=== PATIENT | female | born 1935 | race Caucasian/White ===

== ENCOUNTER 2017-07-31 17:27 | Observation (INO) | payer BC, MEDICARE ==
[2017-07-31] MEDS ORDERED: Ondansetron INJ* 2 MG/ML VIAL IV ONE (18:04)
--- NOTE | 2017-07-31 18:28 | RAD ---
INDICATION: Syncope COMPARISON: None TECHNIQUE: PA and lateral views of the chest were obtained. FINDINGS: The heart and mediastinum are normal in size and contour. The lungs are grossly clear. There is no evidence of large pleural effusion. Visualized bones are normal for the patient's age. There is no radiographic evidence of free air beneath the diaphragm IMPRESSION: No radiographic evidence of acute cardiopulmonary disease.
--- NOTE | 2017-07-31 18:35 | RAD ---
INDICATION: Syncope COMPARISON: None. TECHNIQUE: Contiguous axial sections of the brain were obtained from the skull base to the vertex without contrast. FINDINGS: The ventricles, cisterns and sulci are within normal limits. There is mild periventricular and subcortical white matter hypoattenuation most consistent with chronic microvascular disease. At the white matter of the left frontoparietal lobe there is a more confluent area of hypodensity measuring 1.3 x 2.4 cm in the axial plane. Otherwise the carter-white matter differentiation is adequately maintained and there is no sulcal effacement. No significant focal abnormality or mass effect is present. There is no evidence for intracranial hemorrhage. No significant focal osseous abnormality is present. There is complete opacification of the left sphenoid sinus with multifocal gas. Remaining visualized paranasal sinuses are adequately aerated. The mastoid air cells are well-aerated. IMPRESSION: CT findings are most consistent with chronic microvascular disease. If the patient is exhibiting focal neurologic deficit then further characterization can be made with MRI.
[2017-07-31 18:44] LABS: Hematocrit 40 % (35-47); Hemoglobin 13.1 g/dl (12.0-16.0); Mean Corpuscular HGB Conc 33 g/dl (31-36); Mean Corpuscular Hemoglobin 32 pg (27-31); Mean Corpuscular Volume 95 fL (80-97); Mean Platelet Volume 7 um3 (7.4-10.4); Red Blood Count 4.14 10^6/ul (4.0-5.4); Red Cell Distribution Width 14 % (10.5-15); White Blood Count 5.8 10^3/ul (3.5-10.8)
[2017-07-31 19:00] LABS: Albumin 4.3 g/dL (3.2-5.2); BUN/Creatinine Ratio 15.2 (8-20); EGFR African American 90.1 (>60); Globulin 2.5 g/dL (2-4); Magnesium 2.2 mg/dL (1.9-2.7); Total Bilirubin 0.5 mg/dL (0.2-1.0); Total Protein 6.8 g/dL (6.4-8.9)
[2017-07-31 19:32] LABS: TSH (Thyroid Stimulating Horm) 3.03 mcIU/mL (0.34-5.60)
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
[2017-07-31] MEDS ORDERED: Iohexol 350* (CONTRAST) 500 ML MDV IV ONE (21:16)
--- NOTE | 2017-07-31 22:02 | RAD ---
INDICATION: Syncope and elevated d-dimer COMPARISON: None TECHNIQUE: Axial source images were acquired following the administration of 61 mL Omnipaque [address] angiographic technique. Coronal and sagittal reconstructed images were constructed and reviewed. FINDINGS: There there are no filling defects in the pulmonary arteries to indicate acute pulmonary embolic disease. At the right middle lobe (image 29) there is a 4 mm groundglass nodule. At the dependent-most portion of the left upper lobe (image 40) there is a 7 mm subpleural groundglass nodule. There are hypoventilatory changes at the dependent left lower lobe. There is trace fluid in the dependent portion of the left fissure. There is a small to moderate pericardial effusion measuring up to 1.4 cm in thickness along the anterior margin of the right ventricle. At the posterior right of midline trachea there is a lymph node measuring 5 mm in short access diameter. A subcarinal lymph node measures 9 x 23 mm. The visualized osseous structures appear normal. Limited views of the upper abdomen show no abnormalities. IMPRESSION: 1. No CT of evidence of pulmonary embolism. 2. There are 2 groundglass nodules measuring 4 and 7 mm. If the patient has risk factors for malignancy and/or a history of malignancy follow-up CT can be acquired in 6 months according to the Fleischner Society criteria. 3. Small pericardial effusion. 4. Additional chronic and degenerative changes described in body the report. THE RECOMMENDATIONS FOR FOLLOWUP AND MANAGEMENT OF AN INCIDENTALLY DETECTED PULMONARY NODULE GREATER THAN OR EQUAL TO 6 MM BUT LESS THAN OR EQUAL TO 8 MM IN SIZE, IN A PATIENT WITHOUT A HISTORY OF MALIGNANCY, INCLUDE FOLLOWUP CT IN 6-12 MONTHS, THEN CONSIDER AGAIN AT 18-24 MONTHS FOR A LOW-RISK PATIENT OR FOLLOWUP CT IN 6-12 MONTHS, THEN AGAIN AT 18-24 MONTHS FOR A HIGH RISK PATIENT. NOTES: SIZE = AVERAGE LENGTH AND WIDTH; HIGH RISK IS DEFINED A HISTORY OF SMOKING OR OTHER KNOW RISK FACTORS FOR LUNG CANCER; LOW RISK IS DEFINED MINIMAL OR ABSENT HISTORY OF SMOKING OR OTHER KNOWN RISK FACTORS. Heidi Sidhu, [place] Cruz, EVELYN Chicas, et al (2017) "Guidelines for Management of Incidental Pulmonary Nodules Detected on CT Images: From the Fleischner Society 2017." Radiology; 284(1): 228-243. doi:10.1148/radiol.7120327806
[2017-07-31] MEDS ORDERED: hydrALAZINE IV* 20 MG/ML VIAL IV PRN (23:23)
[2017-07-31] MEDS ORDERED: Ondansetron INJ* 2 MG/ML VIAL IV PRN (23:24)
[2017-07-31] MEDS ORDERED: traMADol TAB* 50 MG PO PRN (23:24)
[2017-07-31] MEDS ORDERED: Melatonin (NF) 3 MG TAB PO PRN (23:24)
[2017-07-31] MEDS ORDERED: Acetaminophen TAB* 325 MG PO PRN (23:24)
[2017-08-01 00:18] LABS: Hematocrit 37 % (35-47); Hemoglobin 12.6 g/dl (12.0-16.0); Mean Corpuscular HGB Conc 34 g/dl (31-36); Mean Corpuscular Hemoglobin 32 pg (27-31); Mean Corpuscular Volume 95 fL (80-97); Mean Platelet Volume 7 um3 (7.4-10.4); Red Blood Count 3.93 10^6/ul (4.0-5.4); Red Cell Distribution Width 14 % (10.5-15); White Blood Count 11.3 10^3/ul (3.5-10.8)
[2017-08-01 00:33] LABS: EGFR African American 95.6 (>60); EGFR Non-African American 74.4 (>60)
[2017-08-01 00:45] LABS: Troponin I 0.01 ng/mL (<0.04)
[2017-08-01] MEDS: Heparin VIAL(*) 5000 UNITS/ML VIAL (FIVE THOUSAND) SUBCUT SCH ×2 (05:54→14:32)
[2017-08-01] MEDS ORDERED: Omeprazole CAP* 20 MG PO SCH (06:00)
[2017-08-01 06:58] LABS: BUN/Creatinine Ratio 13.9 (8-20); Calcium 9.2 mg/dL (8.6-10.3); EGFR African American 90.1 (>60); Potassium 3.3 mmol/L (3.5-5.0)
[2017-08-01 07:01] LABS: Troponin I 0.01 ng/mL (<0.04)
--- NOTE | 2017-08-01 08:54 | ED ---
Ralph Tomlin Angela, scribed for Chris Sorto MD on 07/31/17 at 1746 . Syncope/Near Syncope - HPI Summary HPI Summary: This pt is a 81 y/o female accompanied by her and son presenting to [facility] c/o syncope today. Per son, pt was was stirring gravy standing up by the stove when she passed out. No head strike. Syncope was witnessed by family members who report she vomited a small amount. Per son, pt has not had much to eat today, which the notes it's typical for them. Pt denies headache, blurry vision, chest pain, palpitations, abd pain, nausea. - History Of Current Complaint Hx Obtained From: Patient Onset/Duration: Sudden Onset, Resolved Timing: Minutes Context: Witnessed Activity At Onset: Other - stirring gravy while standing up next to the stove Alleviating Factor(s): Spontaneous Resolution Associated Signs And Symptoms: Vomiting - mild PMH/Surg Hx/FS Hx/Imm Hx Endocrine/Hematology History: Denies: Hx Diabetes Cardiovascular History: Reports: Hx Hypertension Neurological History: Reports: Other Neuro Impairments/Disorders - syncope 12 years ago Infectious Disease History: No Infectious Disease History: Denies: Traveled Outside the [place] in Last 30 Days - Family History Known Family History: Negative: Cardiac Disease - Social History Alcohol Use: None Substance Use Type: Reports: None Smoking Status (MU): Never Smoked Tobacco Review of Systems Negative: Fever, Chills Negative: Blurred Vision Negative: Chest Pain Negative: Shortness Of Breath Positive: Vomiting - some. Negative: Abdominal Pain, Nausea Positive: Syncope. Negative: Headache All Other Systems Reviewed And Are Negative: Yes Physical Exam - Summary Physical Exam Summary: VITAL SIGNS: Reviewed. GENERAL: Patient is a well-developed and nourished (MALE OR FEMALE) who is lying comfortable in the stretcher. Patient is not in any acute respiratory distress. HEAD AND FACE: No signs of trauma. No ecchymosis, hematomas or skull depressions. No sinus tenderness. EYES: PERRLA, EOMI x 2, No injected conjunctiva, no nystagmus. No photophobia. EARS: Hearing grossly intact. Ear canals and tympanic membranes are within normal limits. MOUTH: Oropharynx within normal limits. NECK: Supple, trachea is midline, no adenopathy, no JVD, no carotid bruit, no c- spine tenderness, neck with full ROM. No meningeal signs, no Kernig's or brudzinskis signs. CHEST: Symmetric, no tenderness at palpation LUNGS: Clear to auscultation bilaterally. No wheezing or crackles. CVS: Regular rate and rhythm, S1 and S2 present, no murmurs or gallops appreciated. ABDOMEN: Soft, non-tender. No signs of distention. No rebound no guarding, and no masses palpated. Bowel sounds are normal. EXTREMITIES: FROM in all major joints, no edema, no cyanosis or clubbing. NEURO: Alert and oriented x 3. No acute neurological deficits. Speech is normal and follows commands. SKIN: Dry and warm GCS: 15 Triage Information Reviewed: Yes Vital Signs On Initial Exam: Initial Vitals Temp Pulse Resp BP Pulse Ox 97.9 F 75 18 194/99 96 07/31/17 17:36 07/31/17 17:36 07/31/17 17:36 07/31/17 17:36 07/31/17 17:36 Vital Signs Reviewed: Yes Diagnostics - Vital Signs Vital Signs Temp Pulse Resp BP Pulse Ox 07/31/17 17:36 97.9 F 75 18 194/99 96 - Laboratory Lab Results: Lab Results 07/31/17 07/31/17 07/31/17 Range/Units 18:24 18:24 18:24 WBC 5.8 (3.5-10.8) 10^3/ul RBC 4.14 (4.0-5.4) 10^6/ul Hgb 13.1 (12.0-16.0) g/dl Hct 40 (35-47) % MCV 95 (80-97) fL MCH 32 H (27-31) pg MCHC 33 (31-36) g/dl RDW 14 (10.5-15) % Plt Count 269 (150-450) 10^3/ul MPV 7 L (7.4-10.4) um3 Neut % (Auto) 73.8 (38-83) % Lymph % (Auto) 19.8 L (25-47) % [place] % (Auto) 4.1 (1-9) % Eos % (Auto) 1.5 (0-6) % Baso % (Auto) 0.8 (0-2) % Absolute Neuts (auto) 4.3 (1.5-7.7) 10^3/ul Absolute Lymphs (auto) 1.1 (1.0-4.8) 10^3/ul Absolute Monos (auto) 0.2 (0-0.8) 10^3/ul Absolute Eos (auto) 0.1 (0-0.6) 10^3/ul Absolute Basos (auto) 0 (0-0.2) 10^3/ul Absolute Nucleated RBC 0 10^3/ul Nucleated RBC % 0.1 D-Dimer, Quantitative (Less Than 230) ng/mL Sodium 140 (133-145) mmol/L Potassium 3.0 L (3.5-5.0) mmol/L Chloride 104 (101-111) mmol/L Carbon Dioxide 26 (22-32) mmol/L Anion Gap 10 (2-11) mmol/L BUN 12 (6-24) mg/dL Creatinine 0.79 (0.51-0.95) mg/dL Est GFR ( Amer) 90.1 (>60) Est GFR (Non-Af Amer) 70.0 (>60) BUN/Creatinine Ratio 15.2 (8-20) Glucose 123 H (70-100) mg/dL Calcium 9.0 (8.6-10.3) mg/dL Magnesium 2.2 (1.9-2.7) mg/dL Total Bilirubin 0.50 (0.2-1.0) mg/dL AST 13 (13-39) U/L ALT 7 (7-52) U/L Alkaline Phosphatase 54 (34-104) U/L Total Creatine Kinase 57 (10-223) U/L Troponin I 0.00 (<0.04) ng/mL B-Natriuretic Peptide 33 ( - 100) pg/mL Total Protein 6.8 (6.4-8.9) g/dL Albumin 4.3 (3.2-5.2) g/dL Globulin 2.5 (2-4) g/dL Albumin/Globulin Ratio 1.7 (1-3) TSH 3.03 (0.34-5.60) mcIU/mL 07/31/ Range/Units 18:24 WBC (3.5-10.8) 10^3/ul RBC (4.0-5.4) 10^6/ul Hgb (12.0-16.0) g/dl Hct (35-47) % MCV (80-97) fL MCH (27-31) pg MCHC (31-36) g/dl RDW (10.5-15) % Plt Count (150-450) 10^3/ul MPV (7.4-10.4) um3 Neut % (Auto) (38-83) % Lymph % (Auto) (25-47) % [place] % (Auto) (1-9) % Eos % (Auto) (0-6) % Baso % (Auto) (0-2) % Absolute Neuts (auto) (1.5-7.7) 10^3/ul Absolute Lymphs (auto) (1.0-4.8) 10^3/ul Absolute Monos (auto) (0-0.8) 10^3/ul Absolute Eos (auto) (0-0.6) 10^3/ul Absolute Basos (auto) (0-0.2) 10^3/ul Absolute Nucleated RBC 10^3/ul Nucleated RBC % D-Dimer, Quantitative > 1050 H (Less Than 230) ng/mL Sodium (133-145) mmol/L Potassium (3.5-5.0) mmol/L Chloride (101-111) mmol/L Carbon Dioxide (22-32) mmol/L Anion Gap (2-11) mmol/L BUN (6-24) mg/dL Creatinine (0.51-0.95) mg/dL Est GFR ( Amer) (>60) Est GFR (Non-Af Amer) (>60) BUN/Creatinine Ratio (8-20) Glucose (70-100) mg/dL Calcium (8.6-10.3) mg/dL Magnesium (1.9-2.7) mg/dL Total Bilirubin (0.2-1.0) mg/dL AST (13-39) U/L ALT (7-52) U/L Alkaline Phosphatase (34-104) U/L Total Creatine Kinase (10-223) U/L Troponin I (<0.04) ng/mL B-Natriuretic Peptide ( - 100) pg/mL Total Protein (6.4-8.9) g/dL Albumin (3.2-5.2) g/dL Globulin (2-4) g/dL Albumin/Globulin Ratio (1-3) TSH (0.34-5.60) mcIU/mL Result Diagrams: 08/01/17 00:08 08/01/17 06:25 Lab Statement: Any lab studies that have been ordered have been reviewed, and results considered in the medical decision making process. - Radiology Chest XR Xray Interpretation: No Acute Changes - IMPRESSION: No radiographic evidence of acute cardiopulmonary disease. ED physician has reviewed this radiology report and agrees. Radiology Interpretation Completed By: Radiologist - CT Brain CT CT Interpretation: Positive (See Comments) - IMPRESSION: CT findings are most consistent with chronic microvascular disease. If the patient is exhibiting focal neurologic deficit then further characterization can be made with MRI. ED physician has reviewed this radiology report and agrees. CT Interpretation Completed By: Radiologist - EKG 8674 Cardiac Rate: NL EKG Rhythm: Sinus Rhythm - at 69 bpm EKG Interpretation: No ST elevations Course/Dx Assessment/Plan: This pt is a 81 y/o female accompanied by her and son presenting to [facility] c/o syncope today. Per son, pt was was stirring gravy standing up by the stove when she passed out. No head strike. Syncope was witnessed by family members who report she vomited a small amount. Per son, pt has not had much to eat today, which the notes it's typical for them. Pt denies headache, blurry vision, chest pain, palpitations, abd pain, nausea. Pt has a syncopal episode today. Head CT shows CT findings are most consistent with chronic microvascular disease. If the patient is exhibiting focal neurologic deficit then further characterization can be made with MRI. EKG shows NSR at [address] elevations. Labs w/o any significant abnormality. I discuss my physical exam, findings and test results with Dr. Clements from the hospitalist services and she agrees to admit patient to his services. Patient is hemodynamically stable alert and oriented x 3. Dr. Clements report Dr. De Dios will be doing the admission for this patient. - Diagnoses Provider Diagnoses: Syncope Discharge - Discharge Plan Condition: Stable Disposition: OTHER Discharge Disposition Comment: signed out to Dr. Portillo, pending dispo, awaiting labs. The documentation as recorded by the Ralph mendoza Angela accurately reflects the service I personally performed and the decisions made by Macario cardenas Walter, MD.
[2017-08-01] MEDS ORDERED: Docusate CAP* 100 MG PO SCH (09:00)
--- NOTE | 2017-08-01 12:06 | ECHO ---
Patient: SWATI FRANCIS [facility] Rec#: [id number] : 1935 Date: 08/01/2017 Age: 81y Height: 172.72 cm / 68.0 in Weight: 63.5 kg / 140.0 lbs Sex: F BSA: 1.76 Room#: 451 Admit Date#: 07/31/2017 Type: Inpatient Referring: Jesse De Diso MD Reading: Kristofer Alcala MD Field Services Director: Rosanne Garcia RDCS CC: Cindy Cortés NP Transthoracic Echocardiogram Indication: Syncope BP: 140/72 HR: 85 Rhythm: NSR with PVCs Findings History: HTN. Technical Comments: The study quality is fair. Completed at 0845. Left Ventricle: The left ventricular chamber size is normal. Mild concentric left ventricular hypertrophy is observed. There is a prominent septal knuckle. Global left ventricular wall motion and contractility are within normal limits. There is normal left ventricular systolic function. The estimated ejection fraction is 60-65%. Abnormal left ventricular diastolic function is observed. There is an E to A reversal in the mitral valve flow pattern suggestive of diastolic dysfunction. Left Atrium: The left atrial chamber size is normal. Right Ventricle: Moderator Band present. The right ventricle is mildly dilated. The right ventricle wall thickness is mildly increased. The right ventricular global systolic function is hyperdynamic. Right Atrium: The right atrium is mild to moderately dilated. Aortic Valve: The aortic valve is trileaflet. The aortic valve leaflets are mildly thickened. There is evidence of aortic sclerosis without stenosis. There is no evidence of aortic regurgitation. There is no evidence of aortic stenosis. Mitral Valve: There is mitral annular calcification. The mitral valve leaflets are mildly thickened. There is trace to mild mitral regurgitation. There is no evidence of mitral stenosis. Tricuspid Valve: The tricuspid valve leaflets are normal. There is mild tricuspid regurgitation. The right ventricular systolic pressure is estimated at 42 mmHg. There is evidence of mild to moderate pulmonary hypertension. There is no tricuspid stenosis. Pulmonic Valve: The pulmonic valve appears normal. There is a trace pulmonic regurgitation. There is no pulmonic stenosis. Pericardium: A pericardial effusion is visualized. The pericardial effusion is seen adjacent to the right ventricle. Aorta: There is borderline dilatation of the ascending aorta. There is no dilatation of the aortic arch. There is mild dilatation of the aortic root. Pulmonary Artery: The main pulmonary artery is not well visualized. Venous: The inferior vena cava is dilated. There is a greater than 50% respiratory change in the inferior vena cava dimension. Summary: There was not any prior study for comparison. Conclusions The left ventricular chamber size is normal. Mild concentric left ventricular hypertrophy is observed. The estimated ejection fraction is 60-65%. Abnormal left ventricular diastolic function is observed. There is trace to mild mitral regurgitation. There is mild tricuspid regurgitation. There is evidence of mild to moderate pulmonary hypertension. There is a trace pulmonic regurgitation. There is borderline dilatation of the ascending aorta. There is mild dilatation of the aortic root. Measurements Name Value Normal Range RVIDd (AP) 2D 3 cm (0.9 - 2.6) RVDdMajor (2D) 4 cm (2.2 - 4.4) RVAW (2D) 0.6 cm (0.2 - 0.5) RAd ISD 4CH 5.5 cm (3.4 - 4.9) RA (A4C)W 4 cm (2.9 - 4.6) IVSd (2D) 1.2 cm (0.6 - 1) LVPWd (2D) 1.1 cm (0.6 - 1) LVIDd (2D) 3.6 cm (3.6 - 5.4) LVIDs (2D) 2.4 cm - LV FS (2D) 35 % (25 - 45) Aortic Annulus 1.5 cm (1.4 - 2.6) Ao root diameter (2D) 3.8 cm (2.1 - 3.5) Ascending Ao 3.4 cm (2.1 - 3.4) Aortic arch 2.5 cm (1.8 - 3.4) LA dimension (AP) 2D 3.2 cm (2.3 - 3.8) LAd ISD 4CH 4.2 cm (2.9 - 5.3) LA ISD 4CH W 3.8 cm (2.5 - 4.5) Name Value Normal Range LA ESV SP 4CH (A/L) 33 ml - LA ESV SP 2CH (A/L) 60 ml - LA ESV BP (A/L) 53 ml - LA ESV BP (A/L) index 30 ml/m2 - LA ESV SP 4CH (MOD) 28 ml - LA ESV SP 2CH (MOD) 58 ml - Name Value Normal Range MV E-wave Vmax 0.61 m/sec - MV deceleration time 283.5 msec - MV A-wave Vmax 1.21 m/sec - MV E:A ratio 0.5 ratio - LV septal e' Vmax 0.05 m/sec - LV lateral e' Vmax 0.06 m/sec - LV E:e' septal ratio 12.2 ratio - LV E:e' lateral ratio 10.17 ratio - Name Value Normal Range AV Vmax 1.4 m/sec - AV VTI 31.9 cm - AV peak gradient 8.33 mmHg - AV mean gradient 4.94 mmHg - LVOT Vmax 1.29 m/sec - LVOT VTI 21.13 cm - LVOT peak gradient 6.67 mmHg - LVOT mean gradient 2.93 mmHg - SHANNA Vmax 0.54 m/sec - Name Value Normal Range MV Vmax 1.55 m/sec - MV VTI 24.43 cm - MV peak gradient 9.65 mmHg - MV mean gradient 3.22 mmHg - MV PHT 73.5 msec - MVA (PHT) 3 cm2 - Name Value Normal Range TR Vmax 2.6 m/sec - TR peak gradient 27 mmHg - RAP 15 mmHg - RVSP 42 mmHg - IVC diameter 2.1 cm - Name Value Normal Range PV Vmax 0.92 m/sec - PV peak gradient 3.39 mmHg -
[2017-08-01 15:18] VITALS: BP 142/77
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
== END 2017-08-01 15:15 | disposition home or self-care (01) ==
LOC: ED 17:27 → MEDTELE 19:35
PROVIDERS: ADMIT Hospitalist; ATTEND Hospitalist
DX: R55 Syncope and collapse (principal); I67.9 Cerebrovascular disease, unspecified; E87.6 Hypokalemia; R11.0 Nausea; R53.1 Weakness; I10 Essential (primary) hypertension; R94.31 Abnormal electrocardiogram [ECG] [EKG]
CPT/HCPCS: 36415; 70450; 71020; 71275; 80048; 80053; 82550; 82565; 83735; 83880; 84443; 84484; 84520; 85025; 85379; 85610; 85730; 93005; 93306; 96374; 99285; A9270-GY; G0378; J1644; J2405; Q9967

== ENCOUNTER 2017-08-26 10:13 | Day surgery (SDC) | payer MEDICARE, BC ==
[~2017-08-26 10:13] MED LIST: Buffered Lidocaine 0.9% SYRIN* 5 ML/SYR SYRINGE INTRADERM ONE; Sodium Citrate/Citric Acid* 15 ML UDC PO ONE
[2017-08-26] MEDS ORDERED: ceFAZolin 2 GM PREMIX (*) 2 GM/50 ML BAG IVPB ONE (10:38)
[2017-08-26] MEDS ORDERED: Sodium Citrate/Citric Acid* 15 ML UDC ONE (10:38)
[2017-08-26] MEDS ORDERED: Bupivacaine 0.25% SDV* 30 ML ONE (13:04)
[2017-08-26] MEDS ORDERED: Mepivacaine 2% MPF (20 MG/ML)* 20 ML MPF ONE (13:21)
[2017-08-26] MEDS ORDERED: Mepivacaine 1% (10 MG/ML)* 30 ML SDV ONE (13:21)
[2017-08-26] MEDS ORDERED: Propofol* 10 MG/ML 20 ML BTL IV PUSH ONE (14:27)
[2017-08-26 16:29] VITALS: BP 155/80
--- NOTE | 2017-08-27 02:51 | OP ---
DATE OF OPERATION: 08/26/17 - [facility] DATE OF : 37 SURGEON: Leno Rosas MD PHARMACEUTICAL SPECIALTY REPRESENTATIVE: LILLIE Fenton ANESTHESIOLOGIST: Dr. Hoffman. ANESTHESIA: Axillary block with MAC. PRE-OP DIAGNOSIS: Left wrist displaced distal radius fracture. POST-OP DIAGNOSIS: Left wrist displaced distal radius fracture. OPERATIVE PROCEDURE: Open reduction internal fixation left distal radius fracture. INDICATIONS: Malu had a very displaced distal radius fracture. I talked to her about her treatment options. I did recommend surgical reduction and fixation. Family had agreed and wanted to proceed. FINDINGS: As expected. ESTIMATED BLOOD LOSS: 5 mL. COMPLICATIONS: None. DESCRIPTION OF PROCEDURE: Malu was seen in the preoperative holding area. The correct side, site, and procedure were identified. We came back to the operating room and axillary block was performed. The arm was prepped and draped in the usual fashion and time-out was performed. I exsanguinated the arm with the Esmarch and the tourniquet was inflated to 250 mmHg. I made a longitudinal incision over the distal FCR tendon. Dissection was carried down. The sheath was released. The tendon was retracted ulnarly. The subsheath was released. The interval between the radial artery and the FPL was developed. The pronator quadratus was released off its radial aspect and then brought back in L pattern distally preserving the distal wrist capsular ligaments. The fracture site was visualized and mobilized. The hand was placed in 10 pounds retraction. A reduction maneuver was performed. The plate was brought in and placed in appropriate location and pinned in place. I then placed one screw through the oblong hole proximally. I then filled the distal row of screws with three nominal angle 2.4 locking screws ulnarly and one variable angle locking screw radially. These were all 2.4 mm screws after the Synthes variable angle distal radius plate and screw set. I then came back proximally and centered the plate in the bone. I switched out my oblong hole screw for a locking screw and placed a couple of more screws proximally. These were all 2.4 mm screws. Everything was irrigated out at this point. Pronator quadratus was repaired. The skin was closed with 3-0 Monocryl suture and Steri- Strips. The wound was dressed with 4x4s, sterile Webril, and a volar cockup wrist splint was applied. The tourniquet was deflated and the hand pinked up immediately. She was taken to recovery room in stable condition. [id number]/[facility] #: [id number] ROBB
--- NOTE | 2017-08-29 20:11 | RAD ---
INDICATION: Left wrist ORIF COMPARISON: August 22, 2017 FINDINGS: 15 seconds of fluoroscopy were provided for the orthopedics department. Fluoroscopic spot imaging of the left wrist were obtained for operative control and show ORIF of the distal radial fracture. CPT II Codes: 6045F (fluoro time doc)
--- NOTE | 2017-08-31 13:09 | UC ---
Progress - Progress Note Progress Note: Called to the surgery center for evaluation of patient Per report, pt with a history of dementia. Pt is s/p ORIF left wrist Dr. Rosas. Pt with a block. Pt was discharged. She used the restroom. Pt was in wheelchair being wheeled to car - pt became unresponsive. Per RN, pt with agonal breathing. At the time of my eval, pt was back in stretcher and alert Pt alert to name, year pt with some confusion to other questions which is basline per mack Pt denies cp, sob, abd pain. No n/v/d. CTA throughout no w/r RRR no s1 s2 no m/r abd soft + BS left arm in splint Pt placed on monitor IV place, IVF FSBG EKG ordered and reviewed REcommend pt to ED by EMS pt and family in agreement with plan EMS called Dr. Rosas notfied in [place]
== END 2017-08-26 15:25 | disposition home or self-care (01) ==
LOC: OREAST 10:13
PROVIDERS: ATTEND Orthopaedic Surgery Hand Surgery
DX: S52.592A Other fractures of lower end of left radius, initial encounter for closed fracture (principal); R94.31 Abnormal electrocardiogram [ECG] [EKG]; W19.XXXA Unspecified fall, initial encounter; Y92.9 Unspecified place or not applicable; I10 Essential (primary) hypertension; G89.18 Other acute postprocedural pain
CPT/HCPCS: 76000; A9270-GY; C1713; C1776; J0670; J0690; J2704

== ENCOUNTER 2017-08-26 16:53 | Observation (INO) | payer MEDICARE, BC ==
--- OUTSIDE RECORDS SUMMARY | 2017-08-26 17:19 | XMS REPORT ---
:1935 External Reference #:[id number] Author Organization [employer] Address [address] [address] Phone [phone] Care Team Providers Name Role Phone Cindy Cortés NP Primary Care Physician Unavailable Payers Type Date Identification Numbers Payment Provider Subscriber Medicare Primary Policy Number: [id number] Medicare Malu Lopez PayID: [id number] [address] [place] [address] [facility] Policy Number: [id number] [facility] Malu Lopez PayID: [id number] [address] [address] [place] [address] Problems Date Description Provider Status Onset: 08/22/2017 Closed fracture of distal end of radius Leno Rosas MD Active Family History Date Family Member(s) Problem(s) Comments General Unknown Social History Type Date Description Comments Lives With Spouse Occupation Retired ETOH Use Denies alcohol use Smoking Patient has never smoked Allergies, Adverse Reactions, Alerts Date Description Reaction Status Severity Comments 08/22/2017 NKDA active Medications Medication Date Status Form Strength Qnty SIG Indications Ordering Provider Lisinopril Active Tablets 20mg 1 by mouth Unknown every day Vital Signs Date Vital Result Comment 08/22/2017 Heart Rate 78 /min BP Systolic Sitting 140 mmHg BP Diastolic Sitting 82 mmHg Pain Level 4 Results Description No Information Procedures Date CPT Code Description Status 08/01/2017 09026 ECHO Transthorasic Realtime 2D W Doppler & Color Completed Flow Hosp Encounters Type Date Location Provider CPT E/M Dx Office Visit 08/01/2017 [place] [facility],manuel Lara M.D. [id number] R55 11:48a [facility] E87.6 Office Visit 07/31/2017 11:[place] [address] R55 [place] E87.6 Plan of Care Future Appointment(s):09/05/2017 10:45 am - Leno Rosas MD at [facility].08/22/2017 - Leno Rosas, [id number] Unsp fracture of the lower end of left radius, initFollow up:Follow up: 10-14 days postop
--- OUTSIDE RECORDS SUMMARY | 2017-08-26 17:22 | XMS REPORT ---
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 Payers Type Date Identification Numbers Payment Provider Subscriber Medicare Primary Effective: Policy Number: Medicare Malu 2001 [id number] Jessica PayID: [id number] [address] [place] [address] [employer] Policy Number: [id number] [facility] Commercial Malu Lopez Group Number: [id number] [address] [address] PayID: [id number] [place] [address] Problems Date Description Provider Status Onset: 11/01/2010 Benign essential hypertension Hector Leal MD Active Onset: 11/01/2010 Mixed hyperlipidemia Hector Leal MD Active Onset: 11/01/2010 Localized, 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 Onset: 11/01/2010 Depressive disorder Hector Leal MD Active Onset: 11/01/2010 Osteoporosis Hector Leal MD Active Onset: 11/01/2010 Allergic rhinitis due to pollen Hector Leal MD Active Onset: 05/30/2015 Major depressive disorder, single Vane Negrete MD Active episode, unspecified Onset: 05/30/2015 Essential hypertension Vane Negrete MD Active Onset: 05/30/2015 Age-related osteoporosis w/o current Vane Negrete MD Active pathological fracture Family History Date Family Member(s) Problem(s) Comments Father due to MVA () Mother Alzheimer's Disease Social History Type Date Description Comments Marital Status Occupation Currently Working ETOH Use Denies alcohol use Smoking Patient has never smoked Daily Caffeine Does Not Consume Caffeine Allergies, Adverse Reactions, Alerts Date Description Reaction Status Severity Comments 07/22/2005 NKDA active Medications Medication Date Status Form Strength Qnty SIG Indications Ordering Provider Lisinopril 08/07/ Active Tablets 10mg 90tab 1 by mouth I10 Milana, 2016 s every day Cindy De León RN MS [employer]ALITY AUDIT REPRESENTATIVE Aspirin Enteric 01/14/ Active Tablets 81mg 1 PO qd Elvis, Coated 2004 MD Hector Lisinopril 08/07/ Hx Tablets 20mg 90tab 1 by mouth I10 Milana, 2016 - s every day Cindy 08/07/ Sarthak RN MS 2017 QUALITY AUDIT REPRESENTATIVE Zoloft 01/08/ Hx Tablets 25mg 30tab 1 by mouth F32.9 Yosef, 2015 - s every day Adriane 08/07/ MD Teresa 2017 Duloxetine HCL 03/23/ Hx Caps DR Bradley 60mg 90cap Take 1 F32.9 Milana, 2014 - s Capsule By Cindy 08/07/ Mouth Sarthak RN MS 2017 Daily QUALITY AUDIT REPRESENTATIVE Alone With 30 Milligram To Make It 90 Milligram Daily Metoprolol 11/29/ Hx Tablets 25mg 180ta take one I10 Caden Tartrate 2014 - bs tablet Vane 08/07/ twice MD Ct 2017 daily by mouth Triamcinolone 04/07/ Hx Mustang 2 sprays J30.1 Caden Acetonide 2013 - b/l Vane 01/08/ nostril MD Ct 2016 everyday x 1-2 weeks Cymbalta 03/01/ Hx Caps DR Bradley 60mg 90cap 1 by mouth 311 Caden, 2013 - s every day Vane 03/23/ MD Ct 2014 Ceftin 05/03/ Hx Tablets 250mg 14tab 1 po bid 461.3 Elvis, 2012 - s Hector 08/16/ 2012 Nasonex 05/03/ Hx Suspension 50mcg/Act 51uni spray 2 461.3 Elvis 2012 - ts sprays Hector, 12/15/ into each 2013 nostril once daily Hydrocodone/Venkat 12/14/ Hx Syrup 5-1.5mg/5 8oz 1-2 tsp 465.9 Elvis atropine 2012 - ML four times Hector 01/04/ a day prn 2012 cough. Levaquin 12/14/ Hx Tablets 500mg 10tab one po qd 465.9 Elvis, 2012 - s x 10 days Hector 01/04/ 2012 Robitussin ac 11/30/ Hx 8Oz 2 tsp qid Elvis, 2012 - prn cough Hector 12/14/ 2012 Xanax 11/25/ Hx Tablets 0.5mg 40tab 1/2-1 po Elvis, 2012 - s qid as Hector 12/15/ needed for 2013 anxiety/sl eep Cymbalta 09/30/ Hx Caps DR Bradley 30mg 90cap 1 by mouth 311 Caden 2011 - s every day Vane 04/08/ with 60mg MD Ct 2013 for a total of 90mg every day Felodipine ER 12/09/ Hx Tablets ER 5mg 90tab take 1 I10 Caden 2010 - 24HR s tablet by Vane 08/07/ mouth once MD Ct 2016 daily Pravastatin 06/27/ Hx Tablets 40mg 90tab take 1 E78.2 Caden Sodium 2009 - s tablet by Vane 08/07/ mouth at MD Ct 2016 bedtime Lisinopril-Hydr 05/31/ Hx Tablets 20-12.5mg 90tab take 1 I10 Caden ochlorothiazide 2009 - s tablet by Vane 08/07/ mouth once MD Ct 2016 daily Fosamax Plus D 12/11/ Hx Tabs 70-2800mg 4tabs Take 1 733.00 Elvis, 2009 - -Unit Tablet By Hector 10/26/ Tori FERRARI 2010 Weekly On Empty Stomach as Directed Fosamax Plus D 12/11/ Hx Tablets 70-2800mg 4tabs take 1 M81.0 Milana 2009 - -Unit tablet by Cindy 08/07/ mouth C, RN MS 2016 weekly on QUALITY AUDIT REPRESENTATIVE empty stomach as directed Mometasone 11/28/ Hx Cream 0.1% 30gm Apply bid Elvis Furoate 2008 - with Hector 11/27/ Jose R FERRARI 2009 cream Levaquin 07/29/ Hx Tablets 500mg 7tabs one po qd Elvis, 2007 - x 7 days Hector 11/27/ 2009 Fosamax W/ Vit 10/27/ Hx Tablets 70mg 4tabs 1 po qweek 733.00 Cari Leal 2006 - on empty Hector, 12/11/ stomach as 2009 dir Tigist 10/27/ Hx Tablets 180mg 30tab 1 po qd 477.0 Elvis, 2006 - s Hector 04/03/ 2008 Cymbalta 06/04/ Hx Caps DR Kirk 60mg 30cap take 1 308.4 Trab, 2005 - s capsule by Hector, 12/15/ mouth once 2013 daily 311 Levaquin 10/18/2005 - Hx Tablets 500mg 7tabs one po qd x Trabout, 11/18/2005 7 days MD Hector Plendil 10/04/2005 - Hx Tablets 5mg 30tabs 1 po qd 401. Trabout, 12/09/2010 1 MD Hector K-Dur 20 09/23/2005 - Hx Tablets 1500mg 30tabs 1 po qd Trabout, 07/04/2008 MD Hector Robitussin A-c 07/22/2005 - Hx Syrup 100mg;10m 8Oz 2 tsp qid Trabout, 11/18/2005 g/5ML prn cough MD Hector Cymbalta 06/10/2005 - Hx 30mg 30units 1 po qd Trabout, 06/04/2006 MD Hector Pravachol 04/22/2005 - Hx Tablets 40mg 30tabs 1 tab po 272. Trabout, 06/27/2010 qhs 2 MD Hector Fosamax 01/14/2005 - Hx Tablets 70mg 4tabs 1 po qweek Trabout, 10/27/2006 on empty MD Hector stomach as dir Norvasc 01/14/2005 - Hx Tablets 5mg 30tabs 1 po qd Trabout, 10/04/2005 MD Hector Effexor XR 01/14/2005 - Hx Capsules 150mg 30caps 1 po qam Trabout, 06/10/2005 MD Hector Zestoretic 01/14/2005 - Hx Tablets 20mg;12.5 30tabs 1 po qd 401. Trabout, 07/23/2010 mg 1 MD Hector Immunizations CPT Code Status Date Vaccine Lot # [id number] Given 03/06/2017 Zoster (Zostavax) 77112 Given 03/06/2017 Pneumococcal 23 Immunization Adult Or Immunosuppressed Patient 75387 Given 06/25/2016 Influenza Vac, 3 Yrs & Older, Quadrivalent, [id number] Split, [place] Use [address] Given 06/20/2015 Influenza Vac, 3 Yrs & Older, Quadrivalent, [id number] Split, [place] Use 55041 Given 05/30/2015 Tdap (Adacel) Ages 7 And Above Only [id number] 41865 Given 11/29/2014 Prevnar 13 Pneumococal Conjugate Vaccine Q2038 Given 06/07/2014 Fluzone Trivalent Immunization Q2038 Given 06/07/2014 Fluzone Trivalent Immunization [id number] Q2038 Given 06/02/2013 Fluzone Trivalent Immunization [id number] Q2038 Given 06/01/2012 Fluzone Trivalent Immunization [id number] Q2038 Given 06/13/2011 Fluzone Trivalent Immunization [id number] 66309 Given 06/15/2010 Afluria Or Fluvirin Flu Vac Intramuscular [id number] 87482 Given 08/28/2009 Influenza Virus Vaccine Pandemic Formulation - [id number] 05918 Given 08/28/2009 Administration Swine Flu Vaccine [id number] 83456 Given 05/16/2009 Afluria Or Fluvirin Flu Vac Intramuscular [id number] 65251 Given 06/11/2007 Afluria Or Fluvirin Flu Vac Intramuscular 09003 Given 06/11/2007 Afluria Or Fluvirin Flu Vac Intramuscular 21965 Given 06/11/2007 Afluria Or Fluvirin Flu Vac Intramuscular [id number] 83894 Given 07/14/2006 Afluria Or Fluvirin Flu Vac Intramuscular [id number] 84820 Given 06/10/2005 Afluria Or Fluvirin Flu Vac Intramuscular [id number] 73718 Given 06/13/2004 Afluria Or Fluvirin Flu Vac Intramuscular 74588 Given 06/11/2002 Afluria Or Fluvirin Flu Vac Intramuscular 10601 Given 12/03/2001 Pneumococcal 23 Immunization Adult Or Immunosuppressed Patient Vital Signs Date Vital Result Comment 08/07/2017 Weight 130.00 lb Heart Rate 89 /min BP Systolic 187 mmHg BP Diastolic 84 mmHg Height 69 inches 5'9" BMI (Body Mass Index) 19.2 kg/m2 01/09/2016 Weight 152.25 lb Heart Rate 100 /min BP Systolic 129 mmHg BP Diastolic 75 mmHg Height 69 inches 5'9" BMI (Body Mass Index) 22.5 kg/m2 05/30/2015 Weight 152.00 lb Heart Rate 79 /min BP Systolic 124 mmHg BP Diastolic 80 mmHg Height 69 inches 5'9" BMI (Body Mass Index) 22.4 kg/m2 Right Visual Acuity Distance 20/30 Left Visual Acuity Distance 20/30 Both 20/30 11/29/2014 Weight 153.00 lb Heart Rate 93 /min BP Systolic 148 mmHg BP Diastolic 77 mmHg BP Systolic Recheck 146 mmHg BP Diastolic Recheck 82 mmHg Height 69 inches 5'9" BMI (Body Mass Index) 22.6 kg/m2 04/07/2014 Weight 155.00 lb Heart Rate 108 /min BP Systolic 133 mmHg BP Diastolic 78 mmHg Height 69 inches 5'9" BMI (Body Mass Index) 22.9 kg/m2 12/15/2013 Weight 156.50 lb Heart Rate 98 /min BP Systolic 150 mmHg R. Arm BP Diastolic 78 mmHg R. Arm BP Systolic Recheck 152 mmHg L. Arm BP Diastolic Recheck 84 mmHg L. Arm 08/16/2013 Weight 160.00 lb Heart Rate 89 /min BP Systolic 137 mmHg BP Diastolic 72 mmHg 05/03/2013 Weight 158.00 lb Heart Rate 98 /min BP Systolic 118 mmHg BP Diastolic 77 mmHg 01/04/2013 Weight 158.00 lb Heart Rate 96 /min BP Systolic 111 mmHg BP Diastolic 72 mmHg 08/24/2012 Weight 164.00 lb Heart Rate 86 /min BP Systolic 133 mmHg BP Diastolic 80 mmHg 04/27/2012 Weight 159.00 lb Heart Rate 97 /min BP Systolic 134 mmHg BP Diastolic 83 mmHg 01/20/2012 Weight 163.00 lb Heart Rate 93 /min BP Systolic 143 mmHg BP Diastolic 77 mmHg 04/29/2011 Weight 162.00 lb Heart Rate 87 /min BP Systolic 128 mmHg BP Diastolic 70 mmHg 11/05/2010 Weight 162.00 lb Heart Rate 89 /min BP Systolic 137 mmHg BP Diastolic 81 mmHg 07/23/2010 Weight 160.00 lb Heart Rate 89 /min BP Systolic 120 mmHg BP Diastolic 76 mmHg 04/02/2010 Weight 157.00 lb Heart Rate 91 /min BP Systolic 114 mmHg BP Diastolic 75 mmHg 11/27/2009 Weight 158.00 lb Heart Rate 96 /min BP Systolic 134 mmHg BP Diastolic 80 mmHg 07/31/2009 Weight 164.00 lb Heart Rate 96 /min BP Systolic 119 mmHg BP Diastolic 76 mmHg 04/03/2009 Weight 158.00 lb Heart Rate 85 /min BP Systolic 122 mmHg BP Diastolic 76 mmHg 11/28/2008 Weight 157.00 lb Heart Rate 87 /min BP Systolic 122 mmHg BP Diastolic 74 mmHg 07/29/2008 Body Temperature 97.0 F Weight 167.00 lb Heart Rate 90 /min BP Systolic 155 mmHg BP Diastolic 83 mmHg 07/04/2008 Weight 165.00 lb Heart Rate 101 /min BP Systolic 128 mmHg BP Diastolic 79 mmHg 02/29/2008 Weight 164.00 lb Heart Rate 93 /min BP Systolic 136 mmHg BP Diastolic 78 mmHg 08/24/2007 Weight 164.00 lb Heart Rate 90 /min BP Systolic 145 mmHg BP Diastolic 87 mmHg 06/11/2007 Body Temperature 97.1 F 02/23/2007 Weight 166.00 lb Heart Rate 100 /min BP Systolic 122 mmHg BP Diastolic 78 mmHg 10/27/2006 Weight 165.00 lb Heart Rate 80 /min BP Systolic 150 mmHg BP Diastolic 84 mmHg 07/14/2006 Weight 165.00 lb Heart Rate 90 /min BP Systolic 134 mmHg BP Diastolic 84 mmHg 03/17/2006 Weight 162.00 lb Heart Rate 90 /min BP Systolic 128 mmHg BP Diastolic 72 mmHg 11/18/2005 Weight 164.00 lb Heart Rate 88 /min BP Systolic 148 mmHg BP Diastolic 74 mmHg 09/23/2005 Weight 162.00 lb With Boots Heart Rate 87 /min BP Systolic 154 mmHg BP Diastolic 89 mmHg 07/22/2005 Body Temperature 100.0 F Weight 159.00 lb Heart Rate 108 /min BP Systolic 127 mmHg BP Diastolic 84 mmHg 04/22/2005 Weight 162.00 lb Heart Rate 82 /min BP Systolic 110 mmHg BP Diastolic 70 mmHg BP Systolic Recheck 128 mmHg BP Diastolic Recheck 76 mmHg 01/14/2005 Weight 164.00 lb Heart Rate 93 /min BP Systolic 134 mmHg BP Diastolic 77 mmHg Results Test Date Test Result H/L Range Note CBC With Auto Diff 05/29/2015 WBC 7.4 K/uL 4.1-11.0 RBC 4.24 M/uL 4.00-5.40 Hemoglobin 13.3 gm/dL 12.0-16.0 Hematocrit 41.0 % 36.0-47.0 MCV 96.7 fL 80.0-97.0 MCH 31.4 pg 27.0-32.0 MCHC 32.5 g/dL 32.0-36.0 RDW 14.0 % 11.5-14.5 PLT Count 229 K/ul 140-400 Neutrophil 64.3 % 35.0-75.0 Lymphocyte 27.3 % 16.0-52.0 Monocyte 6.4 % 2.0-10.0 Eosinophil 1.3 % 0.0-5.0 Basophil 0.7 % 0.0-4.0 Abs Neutrophils 4.7 K/uL 2.1-8.0 Abs Lymphocytes 2.0 K/uL 0.8-5.5 Abmon 0.5 K/uL 0.1-1.0 Abs Eosinophils 0.1 K/uL 0.0-0.5 Abs Basophils 0.1 K/uL 0.0-0.3 Comprehensive Metabolic (CMP) 05/29/2015 Sodium 140 mmol/L 134-142 Potassium 3.8 mmol/L 3.5-5.2 Chloride 102 mmol/L 97-109 Carbon Dioxide 29 mmol/L 24-34 Glucose 101 mg/dL 70-105 BUN 19 mg/dL 6-26 Creatinine 0.8 mg/dL 0.5-1.4 Calcium 9.4 mg/dL 8.5-10.2 Total Protein 6.9 g/dL 6.0-8.0 Albumin 4.6 g/dL 3.6-4.9 Globulin 2.3 g/dL 2.0-3.5 A/G Ratio 2.0 Ratio 1.0-2.2 Total Bilirubin 0.7 mg/dL 0.1-1.3 Alkaline Phosphatase 61 U/L 24-140 Alt 12 U/L 3-42 Ast 18 U/L 8-42 Anion Gap 13 mmol/L 6-14 Chanel Egfr >60 >60 1 Non Chanel Egfr >60 >60 2 Lipid 05/29/2015 Cholesterol 189 mg/dL 50-199 Triglycerides 173 mg/dL 30-200 HDL 60 mg/dL 35-85 3 Chol/ HDL Ratio 3.2 ratio Low 3.7-5.6 VLDL 35 mg/dL High 2-29 LDL (Calc) 94 mg/dL 20-99 4 Laboratory test finding 05/29/2015 Vit D,25 Hydroxy 50 ng/mL 31-100 CBC With Auto Diff 11/24/2014 WBC 4.4 K/uL 4.1-11.0 5 RBC 4.03 M/uL 4.00-5.40 5 Hemoglobin 12.7 gm/dL 12.0-16.0 5 Hematocrit 38.5 % 36.0-47.0 5 MCV 95.7 fL 80.0-97.0 5 MCH 31.5 pg 27.0-32.0 5 MCHC 32.9 g/dL 32.0-36.0 5 RDW 13.9 % 11.5-14.5 5 PLT Count 280 K/ul 140-400 5 Neutrophil 60.1 % 35.0-75.0 5 Lymphocyte 29.8 % 16.0-52.0 5 Monocyte 6.2 % 2.0-10.0 5 Eosinophil 3.4 % 0.0-5.0 5 Basophil 0.5 % 0.0-4.0 5 Abs Neutrophils 2.7 K/uL 2.1-8.0 5 Abs Lymphocytes 1.3 K/uL 0.8-5.5 5 Abmon 0.3 K/uL 0.1-1.0 5 Abs Eosinophils 0.2 K/uL 0.0-0.5 5 Abs Basophils 0.0 K/uL 0.0-0.3 5 Comprehensive Metabolic (CMP) 11/24/2014 Sodium 141 mmol/L 134-142 5 Potassium 3.9 mmol/L 3.5-5.2 5 Chloride 104 mmol/L 97-109 5 Carbon Dioxide 30 mmol/L 24-34 5 Glucose 109 mg/dL High 70-105 5 BUN 18 mg/dL 6-26 5 Creatinine 0.8 mg/dL 0.5-1.4 5 Calcium 9.0 mg/dL 8.5-10.2 5 Total Protein 6.4 g/dL 6.0-8.0 5 Albumin 4.3 g/dL 3.6-4.9 5 Globulin 2.1 g/dL 2.0-3.5 5 A/G Ratio 2.0 Ratio 1.0-2.2 5 Total Bilirubin 0.6 mg/dL 0.1-1.3 5 Alkaline Phosphatase 60 U/L 24-140 5 Alt 11 U/L 3-42 5 Ast 16 U/L 8-42 5 Anion Gap 11 mmol/L 6-14 5 Chanel Egfr >60 >60 5, 6 Non Chanel Egfr >60 >60 5, 7 Laboratory test finding 11/24/2014 TSH 1.72 uIU/mL 0.34-5.60 5 Lipid 11/24/2014 Cholesterol 199 mg/dL 50-199 5 Triglycerides 164 mg/dL 30-200 5 HDL 54 mg/dL 35-85 5, 8 Chol/ HDL Ratio 3.7 ratio 3.7-5.6 5 VLDL 33 mg/dL High 2-29 5 LDL (Calc) 112 mg/dL High 20-99 5, 9 Laboratory test finding 11/24/2014 Vitamin B12 316 pg/mL 180-914 5 Vit D,25 Hydroxy 59 ng/mL 31-100 5 CBC With Auto Diff 04/07/2014 WBC 5.1 K/uL 4.1-11.0 10 RBC 4.12 M/uL 4.00-5.40 10 Hemoglobin 13.2 gm/dL 12.0-16.0 10 Hematocrit 39.4 % 36.0-47.0 10 MCV 95.6 fL 80.0-97.0 10 MCH 32.1 pg High 27.0-32.0 10 MCHC 33.6 g/dL 32.0-36.0 10 RDW 13.3 % 11.5-14.5 10 PLT Count 247 K/ul 140-400 10 Neutrophil 57.5 % 35.0-75.0 10 Lymphocyte 33.0 % 16.0-52.0 10 Monocyte 6.8 % 2.0-10.0 10 Eosinophil 1.9 % 0.0-5.0 10 Basophil 0.8 % 0.0-4.0 10 Abs Neutrophils 2.9 K/uL 2.1-8.0 10 Abs Lymphocytes 1.7 K/uL 0.8-5.5 10 Abmon 0.3 K/uL 0.1-1.0 10 Abs Eosinophils 0.1 K/uL 0.0-0.5 10 Abs Basophils 0.0 K/uL 0.0-0.3 10 Comprehensive Metabolic (CMP) 04/07/2014 Sodium 141 mmol/L 134-142 10 Potassium 4.2 mmol/L 3.5-5.2 10 Chloride 105 mmol/L 97-109 10 Carbon Dioxide 29 mmol/L 24-34 10 Glucose 104 mg/dL 70-105 10 BUN 11 mg/dL 6-26 10 Creatinine 0.8 mg/dL 0.5-1.4 10 Calcium 9.1 mg/dL 8.5-10.2 10 Total Protein 6.8 g/dL 6.0-8.0 10 Albumin 4.3 g/dL 3.6-4.9 10 Globulin 2.5 g/dL 2.0-3.5 10 A/G Ratio 1.7 Ratio 1.0-2.2 10 Total Bilirubin 0.7 mg/dL 0.1-1.3 10 Alkaline Phosphatase 59 U/L 24-140 10 Alt 12 U/L 3-42 10 Ast 16 U/L 8-42 10 Anion Gap 11 mmol/L 6-14 10 Chanel Egfr >60 >60 10, 11 Non Chanel Egfr >60 >60 10, 12 Lipid 04/07/2014 Cholesterol 177 mg/dL 50-199 10 Triglycerides 263 mg/dL High 30-200 10 HDL 47 mg/dL 35-85 10, 13 Chol/ HDL Ratio 3.8 ratio 3.7-5.6 10 VLDL 53 mg/dL High 2-29 10 LDL (Calc) 77 mg/dL 20-99 10, 14 CBC With Auto Diff 12/15/2013 WBC 6.1 K/uL 4.1-11.0 15 RBC 4.31 M/uL 4.00-5.40 15 Hemoglobin 13.8 gm/dL 12.0-16.0 15 Hematocrit 41.1 % 36.0-47.0 15 MCV 95.4 fL 80.0-97.0 15 MCH 32.1 pg High 27.0-32.0 15 MCHC 33.6 g/dL 32.0-36.0 15 RDW 13.7 % 11.5-14.5 15 PLT Count 276 K/ul 140-400 15 Neutrophil 68.8 % 35.0-75.0 15 Lymphocyte 22.9 % 16.0-52.0 15 Monocyte 5.6 % 2.0-10.0 15 Eosinophil 2.0 % 0.0-5.0 15 Basophil 0.7 % 0.0-4.0 15 Abs Neutrophils 4.2 K/uL 2.1-8.0 15 Abs Lymphocytes 1.4 K/uL 0.8-5.5 15 Abmon 0.3 K/uL 0.1-1.0 15 Abs Eosinophils 0.1 K/uL 0.0-0.5 15 Abs Basophils 0.0 K/uL 0.0-0.3 15 Comprehensive Metabolic (CMP) 12/15/2013 Sodium 139 mmol/L 134-142 15 Potassium 4.9 mmol/L 3.5-5.2 15 Chloride 105 mmol/L 97-109 15 Carbon Dioxide 30 mmol/L 24-34 15 Glucose 114 mg/dL High 70-105 15 BUN 13 mg/dL 6-26 15 Creatinine 0.8 mg/dL 0.5-1.4 15 Calcium 9.5 mg/dL 8.5-10.2 15 Total Protein 7.0 g/dL 6.0-8.0 15 Albumin 4.5 g/dL 3.6-4.9 15 Globulin 2.5 g/dL 2.0-3.5 15 A/G Ratio 1.8 Ratio 1.0-2.2 15 Total Bilirubin 0.7 mg/dL 0.1-1.3 15 Alkaline Phosphatase 69 U/L 24-140 15 Alt 12 U/L 3-42 15 Ast 17 U/L 8-42 15 Anion Gap 9 mmol/L 6-14 15 Chanel Egfr >60 >60 15, 16 Non Chanel Egfr >60 >60 15, 17 Laboratory test finding 12/15/2013 TSH 1.38 uIU/mL 0.34-5.60 15 Lipid 12/15/2013 Cholesterol 216 mg/dL High 50-199 15 Triglycerides 259 mg/dL High 30-200 15 HDL 50 mg/dL 35-85 15, 18 Chol/ HDL Ratio 4.3 ratio 3.7-5.6 15 VLDL 52 mg/dL High 2-29 15 LDL (Calc) 114 mg/dL High 20-99 15, 19 Laboratory test finding 12/15/2013 Vitamin B12 200 pg/mL 180-914 15 Vit D,25 Hydroxy 50 ng/mL 31-100 15 Comprehensive Metabolic (CMP) 08/16/2013 Sodium 140 mmol/L 134-142 20 Potassium 4.1 Specimen Sli <SEE NOTE> 3.5-5.2 20, 21 mmol/L Chloride 105 mmol/L 97-109 20 Carbon Dioxide 28 mmol/L 24-34 20 Glucose 99 mg/dL 70-105 20 BUN 10 mg/dL 6-26 20 Creatinine 0.7 mg/dL 0.5-1.4 20 Calcium 9.4 mg/dL 8.5-10.2 20 Total Protein 6.9 g/dL 6.0-8.0 20 Albumin 4.8 g/dL 3.6-4.9 20 Globulin 2.1 g/dL 2.0-3.5 20 A/G Ratio 2.3 Ratio High 1.0-2.2 20 Total Bilirubin 0.8 mg/dL 0.1-1.3 20 Alkaline Phosphatase 59 U/L 24-140 20 Alt 12 U/L 3-42 20 Ast 21 U/L 8-42 20 Anion Gap 11 mmol/L 6-14 20 Chanel Egfr >60 >60 20, 22 Non Chanel Egfr >60 >60 20, 23 CBC With Auto Diff 08/16/2013 WBC 5.2 K/uL 4.1-11.0 20 RBC 3.96 M/uL Low 4.00-5.40 20 Hemoglobin 13.3 gm/dL 12.0-16.0 20 Hematocrit 38.0 % 36.0-47.0 20 MCV 96.0 fL 80.0-97.0 20 MCH 33.7 pg High 27.0-32.0 20 MCHC 35.1 g/dL 32.0-36.0 20 RDW 13.8 % 11.5-14.5 20 PLT Count 247 K/ul 140-400 20 Neutrophil 60.8 % 35.0-75.0 20 Lymphocyte 29.7 % 16.0-52.0 20 Monocyte 6.1 % 2.0-10.0 20 Eosinophil 2.5 % 0.0-5.0 20 Basophil 0.9 % 0.0-4.0 20 Abs Neutrophils 3.2 K/uL 2.1-8.0 20 Abs Lymphocytes 1.5 K/uL 0.8-5.5 20 Abmon 0.3 K/uL 0.1-1.0 20 Abs Eosinophils 0.1 K/uL 0.0-0.5 20 Abs Basophils 0.0 K/uL 0.0-0.3 20 Laboratory test finding 08/16/2013 Free T4 0.78 ng/dL 0.50-1.60 20 TSH 1.15 uIU/mL 0.34-5.60 20 Laboratory test finding 05/03/2013 Free T4 0.63 ng/dL 0.50-1.60 20 TSH 1.17 uIU/mL 0.34-5.60 20 Comprehensive Metabolic ([facility]) 05/03/2013 Sodium 142 mmol/L 134-142 20 Potassium 4.9 mmol/L 3.5-5.2 20 Chloride 105 mmol/L 97-109 20 Carbon Dioxide 30 mmol/L 24-34 20 Glucose 107 mg/dL High 70-105 20 BUN 15 mg/dL 6-26 20 Creatinine 0.8 mg/dL 0.5-1.4 20 Calcium 9.4 mg/dL 8.5-10.2 20 Total Protein 7.0 g/dL 6.0-8.0 20 Albumin 4.7 g/dL 3.6-4.9 20 Globulin 2.3 g/dL 2.0-3.5 20 A/G Ratio 2.0 Ratio 1.0-2.2 20 Total Bilirubin 0.7 mg/dL 0.1-1.3 20 Alkaline Phosphatase 63 U/L 24-140 20 Alt 11 U/L 3-42 20 Ast 18 U/L 8-42 20 Anion Gap 12 mmol/L 6-14 20 Chanel Egfr >60 >60 20, 24 Non Chanel Egfr >60 >60 20, 25 Lipid 05/03/2013 Cholesterol 216 mg/dL High 50-199 20 Triglycerides 178 mg/dL 30-200 20 HDL 59 mg/dL 35-85 20, 26 Chol/ HDL Ratio 3.7 ratio 3.7-5.6 20 VLDL 36 mg/dL High 2-29 20 LDL (Calc) 121 mg/dL High 20-99 20, 27 Comprehensive Metabolic ([facility]) 01/04/2013 Sodium 139 mmol/L 134-142 20 Potassium 4.6 mmol/L 3.5-5.2 20 Chloride 103 mmol/L 97-109 20 Carbon Dioxide 30 mmol/L 24-34 20 Glucose 110 mg/dL High 70-105 20 BUN 10 mg/dL 6-26 20 Creatinine 0.8 mg/dL 0.5-1.4 20 Calcium 9.1 mg/dL 8.5-10.2 20 Total Protein 6.8 g/dL 6.0-8.0 20 Albumin 4.3 g/dL 3.6-4.9 20 Globulin 2.5 g/dL 2.0-3.5 20 A/G Ratio 1.7 Ratio 1.0-2.2 20 Total Bilirubin 0.8 mg/dL 0.1-1.3 20 Alkaline Phosphatase 68 U/L 24-140 20 Alt 11 U/L 3-42 20 Ast 18 U/L 8-42 20 Anion Gap 11 mmol/L 6-14 20 Chanel Egfr >60 >60 20, 28 Non Chanel Egfr >60 >60 20, 29 Lipid 01/04/2013 Cholesterol 184 mg/dL 50-199 20 Triglycerides 141 mg/dL 30-200 20 HDL 59 mg/dL 35-85 20, 30 Chol/ HDL Ratio 3.1 ratio Low 3.7-5.6 20 VLDL 28 mg/dL 2-29 20 LDL (Calc) 97 mg/dL 20-129 20, 31 Laboratory test finding 01/04/2013 TSH 1.24 uIU/mL 0.34-5.60 20 Comprehensive Metabolic (CMP) 08/24/2012 Sodium 143 mmol/L High 134-142 32 Potassium 4.6 mmol/L 3.5-5.2 32 Chloride 105 mmol/L 97-109 32 Carbon Dioxide 28 mmol/L 24-34 32 Glucose 106 mg/dL High 70-105 32 BUN 11 mg/dL 6-26 32 Creatinine 0.7 mg/dL 0.5-1.4 32 Calcium 9.7 mg/dL 8.5-10.2 32 Total Protein 6.9 g/dL 6.0-8.0 32 Albumin 4.8 g/dL 3.6-4.9 32 Globulin 2.1 g/dL 2.0-3.5 32 A/G Ratio 2.3 Ratio High 1.0-2.2 32 Total Bilirubin 0.7 mg/dL 0.1-1.3 32 Alkaline Phosphatase 68 U/L 24-140 32 Alt 16 U/L 3-42 32 Ast 19 U/L 8-42 32 Anion Gap 15 mmol/L High 6-14 32 Chanel Egfr >60 >60 32, 33 Non Chanel Egfr >60 >60 32, 34 Lipid 08/24/2012 Cholesterol 194 mg/dL 50-199 32 Triglycerides 203 mg/dL High 30-200 32 HDL 58 mg/dL 35-85 32, 35 Chol/ HDL Ratio 3.3 ratio Low 3.7-5.6 32 VLDL 41 mg/dL High 2-29 32 LDL (Calc) 95 mg/dL 20-129 32, 36 Non HDL Cholesterol 136 mg/dL High 20-129 32 Laboratory test finding 04/27/2012 TSH 1.00 uIU/mL 0.34-5.60 37 Free T4 0.81 ng/dL 0.50-1.60 37 Comprehensive Metabolic (CMP) 04/27/2012 Sodium 140 mmol/L 134-142 37 Potassium 4.6 mmol/L 3.5-5.2 37 Chloride 103 mmol/L 97-109 37 Carbon Dioxide 31 mmol/L 24-34 37 Glucose 103 mg/dL 70-105 37 BUN 9 mg/dL 6-26 37 Creatinine 0.8 mg/dL 0.5-1.4 37 Calcium 9.7 mg/dL 8.5-10.2 37 Total Protein 7.1 g/dL 6.0-8.0 37 Albumin 4.8 g/dL 3.6-4.9 37 Globulin 2.3 g/dL 2.0-3.5 37 A/G Ratio 2.1 Ratio 1.0-2.2 37 Total Bilirubin 0.9 mg/dL 0.1-1.3 37 Alkaline Phosphatase 68 U/L 24-140 37 Alt 14 U/L 3-42 37 Ast 21 U/L 8-42 37 Anion Gap 11 mmol/L 6-14 37 Chanel Egfr >60 >60 37, 38 Non Chanel Egfr >60 >60 37, 39 Lipid 04/27/2012 Cholesterol 210 mg/dL High 50-199 37 Triglycerides 188 mg/dL 30-200 37 HDL 55 mg/dL 35-85 37, 40 Chol/ HDL Ratio 3.8 ratio 3.7-5.6 37 VLDL 38 mg/dL High 2-29 37 LDL (Calc) 117 mg/dL 20-129 37, 41 CBC With Auto Diff 04/27/2012 WBC 5.3 K/uL 4.1-11.0 37 RBC 4.23 M/uL 4.00-5.40 37 Hemoglobin 13.4 gm/dL 12.0-16.0 37 Hematocrit 40.1 % 36.0-47.0 37 MCV 94.8 fL 80.0-97.0 37 MCH 31.8 pg 27.0-32.0 37 MCHC 33.5 g/dL 32.0-36.0 37 RDW 14.1 % 11.5-14.5 37 PLT Count 241 K/ul 140-400 37 Neutrophil 63.5 % 35.0-75.0 37 Lymphocyte 28.4 % 16.0-52.0 37 Monocyte 5.9 % 2.0-10.0 37 Eosinophil 1.5 % 0.0-5.0 37 Basophil 0.7 % 0.0-4.0 37 Abs Neutrophils 3.4 K/uL 2.1-8.0 37 Abs Lymphocytes 1.5 K/uL 0.8-5.5 37 Abs Monocytes 0.3 K/uL 0.1-1.0 37 Abs Eosinophils 0.1 K/uL 0.0-0.5 37 Abs Basophils 0.0 K/uL 0.0-0.3 37 Comprehensive Metabolic (CMP) 01/20/2012 Sodium 141 mmol/L 134-142 37 Potassium 3.8 mmol/L 3.5-5.2 37 Chloride 103 mmol/L 97-109 37 Carbon Dioxide 27 mmol/L 24-34 37 Glucose 110 mg/dL High 70-105 37 BUN 12 mg/dL 6-26 37 Creatinine 0.7 mg/dL 0.5-1.4 37 Calcium 9.0 mg/dL 8.5-10.2 37 BUN/CR 17 ratio 12-20 37 Total Protein 6.8 g/dL 6.0-8.0 37 Albumin 4.4 g/dL 3.6-4.9 37 Globulin 2.4 g/dL 2.0-3.5 37 A/G Ratio 1.8 Ratio 1.0-2.2 37 Total Bilirubin 0.8 mg/dL 0.1-1.3 37 Alkaline Phosphatase 63 U/L 24-140 37 Alt 13 U/L 3-42 37 Ast 18 U/L 8-42 37 Anion Gap 15 mmol/L High 6-14 37 Chanel Egfr >60 >60 37, 42 Non Chanel Egfr >60 >60 37, 43 Lipid 01/20/2012 Cholesterol 201 mg/dL High 50-199 37 Triglycerides 190 mg/dL 30-200 37 HDL 56 mg/dL 35-85 37, 44 Chol/ HDL Ratio 3.6 ratio Low 3.7-5.6 37 VLDL 38 mg/dL High 2-29 37 LDL (Calc) 107 mg/dL 20-129 37, 45 Comprehensive Metabolic (CMP) 09/30/2011 Sodium 142 mmol/L 135-144 37 Potassium 4.4 mmol/L 3.5-5.1 37 Chloride 105 mmol/L 97-107 37 Carbon Dioxide 29 mmol/L 23-33 37 Glucose 102 mg/dL 70-105 37 BUN 16 mg/dL 7-25 37 Creatinine 0.7 mg/dL 0.6-1.2 37 Calcium 9.3 mg/dL 8.6-10.3 37 BUN/CR 23 ratio High 12-20 37 Total Protein 6.8 g/dL 6.0-8.5 37 Albumin 4.3 g/dL 3.5-5.7 37 Globulin 2.5 g/dL 2.0-3.5 37 A/G Ratio 1.7 Ratio 1.0-2.2 37 Total Bilirubin 0.7 mg/dL 0.3-1.3 37 Alkaline Phosphatase 60 U/L 34-104 37 Alt 14 U/L 7-52 37 Ast 16 U/L 13-39 37 Anion Gap 12 mmol/L 8-16 37 Non Chanel Egfr >60 >60 37, 46 Chanel Egfr >60 >60 37, 47 CBC With Auto Diff 09/30/2011 WBC 5.5 K/uL 4.1-11.0 37 RBC 3.99 M/uL Low 4.00-5.40 37 Hemoglobin 13.2 gm/dL 12.0-16.0 37 Hematocrit 37.8 % 36.0-47.0 37 MCV 94.7 fL 80.0-97.0 37 MCH 33.0 pg High 27.0-32.0 37 MCHC 34.8 g/dL 32.0-36.0 37 RDW 13.9 % 11.5-14.5 37 PLT Count 257 K/ul 140-400 37 Neutrophil 66.5 % 35.0-75.0 37 Lymphocyte 25.7 % 16.0-52.0 37 Monocyte 5.2 % 2.0-10.0 37 Eosinophil 2.0 % 0.0-5.0 37 Basophil 0.6 % 0.0-4.0 37 Abs Neutrophils 3.7 K/uL 2.1-8.0 37 Abs Lymphocytes 1.4 K/uL 0.8-5.5 37 Abs Monocytes 0.3 K/uL 0.1-1.0 37 Abs Eosinophils 0.1 K/uL 0.0-0.5 37 Abs Basophils 0.0 K/uL 0.0-0.3 37 Lipid 09/30/2011 Cholesterol 178 mg/dL 50-199 37 Triglycerides 186 mg/dL High 10-150 37 HDL 50 mg/dL 23-92 37, 48 Chol/ HDL Ratio 3.6 ratio Low 3.7-5.6 37 VLDL 37 mg/dL High 2-29 37 LDL (Calc) 91 mg/dL 20-129 37, 49 Laboratory test finding 09/30/2011 TSH 1.19 uIU/mL 0.34-5.60 37 Laboratory test finding 04/29/2011 Free T4 0.79 ng/dL 0.50-1.60 37 TSH 1.73 uIU/mL 0.34-5.60 37 Vit D,25 Hydroxy 37 ng/mL 31-100 37 Lipid 04/29/2011 Cholesterol 181 mg/dL 50-199 37 Triglycerides 147 mg/dL 10-150 37 HDL 56 mg/dL 35-85 37, 50 Chol/ HDL Ratio 3.2 ratio Low 3.7-5.6 37 VLDL 29 mg/dL 2-29 37 LDL (Calc) 96 mg/dL 20-129 37, 51 Comprehensive Metabolic (CMP) 04/29/2011 Sodium 140 mmol/L 135-144 37 Potassium 3.9 mmol/L 3.6-5.2 37 Chloride 102 mmol/L 97-110 37 Carbon Dioxide 29 mmol/L 23-32 37 Glucose 112 mg/dL High 70-105 37 BUN 9 mg/dL 6-22 37 Creatinine 0.7 mg/dL 0.5-1.3 37 Calcium 9.0 mg/dL 8.6-10.2 37 BUN/CR 13 ratio 12-20 37 Total Protein 7.1 g/dL 5.8-7.8 37 Albumin 4.4 g/dL 3.5-4.8 37 Globulin 2.7 g/dL 2.0-3.5 37 A/G Ratio 1.6 Ratio 1.0-2.2 37 Total Bilirubin 1.1 mg/dL 0.3-1.2 37 Alkaline Phosphatase 68 U/L 24-140 37 Alt 19 U/L 5-45 37 Ast 24 U/L 12-40 37 Anion Gap 13 mmol/L 8-16 37 Non Chanel Egfr >60 >60 37, 52 Chanel Egfr >60 >60 37, 53 CBC With Auto Diff 11/05/2010 WBC 5.5 K/ul 4.0-10.9 54 RBC 4.17 M/ul Low 4.20-5.40 54 Hemoglobin 13.5 GM/dl 12.5-16.0 54 Hematocrit 39.7 % 36.0-47.0 54 MCV 95.2 FL 80.0-97.0 54 MCH 32.3 pg High 27.0-31.0 54 MCHC 34.0 g/dL 32.0-36.0 54 RDW 13.9 % 11.5-14.5 54 Platelet Count 266 K/ul 140-440 54 Neutrophils 60.5 % 50-70 54 Lymphocytes 31.7 % 20-44 54 Monocytes 5.4 % 2-9 54 Eosinophil 1.9 % 0-4 54 Basophil 0.5 % 0-2 54 Absolute Neutrophils 3.4 K/ul 2.05-7.63 54 Absolute Lymphocytes 1.8 K/ul 0.8-4.8 54 Absolute Monocytes 0.3 K/ul 0.1-1.0 54 Absolute Eosinophils 0.1 K/ul 0.1-0.5 54 Absolute Basophils 0.0 K/ul 0.0-0.3 54 Hematology Comment (Comm2) N/A 54 Lipid Panel 11/05/2010 Cholesterol 204 mg/dL High 50-199 54 Triglycerides 180 mg/dL High 10-150 54 HDL 63 mg/dL 35-85 54, 55 Chol/HDL Ratio 3.2 Ratio Low 3.7-5.6 54, 56 VLDL 36 mg/dL High 2-29 54 LDL (Calc) 105 mg/dL 20-129 54, 57 CMP 11/05/2010 Sodium 142 mmol/L 135-144 54 Potassium 4.3 mmol/L 3.6-5.2 54 Chloride 104 mmol/L 97-110 54 Carbon Dioxide 28 mmol/L 23-32 54 Glucose 111 mg/dL High 70-105 54 BUN 8 mg/dL 6-22 54 Creatinine 0.7 mg/dL 0.5-1.3 54 BUN/CR 11 Ratio 54 Calcium 9.6 mg/dL 8.6-10.2 54 Total Protein 6.9 g/dL 5.8-7.8 54 Albumin 4.3 g/dL 3.5-4.8 54 Globulin 2.6 g/dL 2.0-3.5 54 A/G Ratio 1.7 Ratio 1.0-2.2 54 Total Bilirubin 1.0 mg/dL 0.3-1.2 54 Alkaline Phosphatase 71 U/L 24-140 54 Alt 18 U/L 5-45 54 Ast 22 U/L 12-40 54 Anion Gap 14 mmol/L 8-16 54 GFR Calculation > 60 mL/min 60-175 54, 58 GFR For > 60 mL/min 60-175 54, 59 Laboratory test finding 04/02/2010 Vitamin D, 25 Hydroxy 46 ng/mL 31-100 54 CMP 04/02/2010 Sodium 142 mmol/L 135-144 54 Potassium 4.3 mmol/L 3.6-5.2 54 Chloride 103 mmol/L 97-110 54 Carbon Dioxide 27 mmol/L 23-32 54 Glucose 104 mg/dL 70-105 54 BUN 9 mg/dL 6-22 54 Creatinine 0.7 mg/dL 0.5-1.3 54 BUN/CR 13 Ratio 54 Calcium 9.5 mg/dL 8.6-10.2 54 Total Protein 6.8 g/dL 5.8-7.8 54 Albumin 4.3 g/dL 3.5-4.8 54 Globulin 2.5 g/dL 2.0-3.5 54 A/G Ratio 1.7 Ratio 1.0-2.2 54 Total Bilirubin 0.9 mg/dL 0.3-1.2 54 Alkaline Phosphatase 68 U/L 24-140 54 Alt 17 U/L 5-45 54 Ast 27 U/L 12-40 54 Anion Gap 16 mmol/L 8-16 54 GFR Calculation > 60 mL/min 60-175 54, 60 GFR For > 60 mL/min 60-175 54, 61 Lipid Panel 04/02/2010 Cholesterol 206 mg/dL High 50-199 54 Triglycerides 175 mg/dL High 10-150 54 HDL 52 mg/dL 35-85 54, 62 Chol/HDL Ratio 4.0 Ratio 3.7-5.6 54, 63 VLDL 35 mg/dL High 2-29 54 LDL (Calc) 119 mg/dL 20-129 54, 64 Laboratory test finding 04/02/2010 Free T4 0.79 ng/dL 0.50-1.60 54 TSH 1.26 uIU/ml 0.34-5.60 54 CBC With Auto Diff 04/02/2010 WBC 4.8 K/ul 4.0-10.9 54 RBC 4.26 M/ul 4.20-5.40 54 Hemoglobin 13.8 GM/dl 12.5-16.0 54 Hematocrit 40.8 % 36.0-47.0 54 MCV 95.7 FL 80.0-97.0 54 MCH 32.4 pg High 27.0-31.0 54 MCHC 33.9 g/dL 32.0-36.0 54 RDW 14.0 % 11.5-14.5 54 Platelet Count 261 K/ul 140-440 54 Neutrophils 64.2 % 50-70 54 Lymphocytes 27.3 % 20-44 54 Monocytes 6.1 % 2-9 54 Eosinophil 1.9 % 0-4 54 Basophil 0.5 % 0-2 54 Absolute Neutrophils 3.1 K/ul 2.05-7.63 54 Absolute Lymphocytes 1.3 K/ul 0.8-4.8 54 Absolute Monocytes 0.3 K/ul 0.1-1.0 54 Absolute Eosinophils 0.1 K/ul 0.1-0.5 54 Absolute Basophils 0.0 K/ul 0.0-0.3 54 Hematology Comment (Comm2) N/A 54 Lipid Panel 07/31/2009 Cholesterol 193 mg/dL 50-199 54 Triglycerides 244 mg/dL High 10-150 54 HDL 51 mg/dL 35-85 54, 65 Chol/HDL Ratio 3.8 Ratio 3.7-5.6 54, 66 VLDL 49 mg/dL High 2-29 54 LDL (Calc) 93 mg/dL 20-129 54, 67 CMP 07/31/2009 Sodium 142 mmol/L 135-144 54 Potassium 4.6 mmol/L 3.6-5.2 54, 68 Chloride 104 mmol/L 97-110 54 Carbon Dioxide 30 mmol/L 23-32 54 Glucose 97 mg/dL 70-105 54 BUN 7 mg/dL 6-22 54 Creatinine 0.7 mg/dL 0.5-1.3 54 BUN/CR 10 Ratio Low 12.0-20.0 54 Calcium 9.3 mg/dL 8.6-10.2 54, 69 Total Protein 6.5 g/dL 5.8-7.8 54 Albumin 4.1 g/dL 3.5-4.8 54 Globulin 2.4 g/dL 2.0-3.5 54 A/G Ratio 1.7 Ratio 1.0-2.2 54 Total Bilirubin 0.9 mg/dL 0.3-1.2 54 Alkaline Phosphatase 72 U/L 24-140 54 Alt 17 U/L 5-45 54 Ast 25 U/L 12-40 54 Anion Gap 13 mmol/L 8-16 54 GFR Calculation > 60 mL/min 60-175 54, 70 GFR For > 60 mL/min 60-175 54, 71 Laboratory test finding 04/03/2009 Vitamin D, 25 Hydroxy 39 ng/mL 31-100 54 Lipid Panel 04/03/2009 Cholesterol 222 mg/dL High 50-199 54 Triglycerides 174 mg/dL High 10-150 54 HDL 55 mg/dL 35-85 54, 72 Chol/HDL Ratio 4.0 Ratio 3.7-5.6 54, 73 VLDL 35 mg/dL High 2-29 54 LDL (Calc) 132 mg/dL High 20-129 54, 74 CMP 04/03/2009 Sodium 142 mmol/L 135-144 54 Potassium 5.9 mmol/L High 3.6-5.2 54, 75 Chloride 104 mmol/L 97-110 54 Carbon Dioxide 31 mmol/L 23-32 54 Glucose 108 mg/dL High 70-105 54 BUN 5 mg/dL Low 6-22 54 Creatinine 0.8 mg/dL 0.5-1.3 54 BUN/CR 6 Ratio Low 12.0-20.0 54 Calcium 9.7 mg/dL 8.6-10.2 54 Total Protein 6.8 g/dL 5.8-7.8 54 Albumin 4.3 g/dL 3.5-4.8 54 Globulin 2.5 g/dL 2.0-3.5 54 A/G Ratio 1.7 Ratio 1.0-2.2 54 Total Bilirubin 1.1 mg/dL 0.3-1.2 54 Alkaline Phosphatase 70 U/L 24-140 54 Alt 16 U/L 5-45 54 Ast 23 U/L 12-40 54 Anion Gap 13 mmol/L 8-16 54 GFR Calculation > 60 mL/min 60-175 54, 76 GFR For > 60 mL/min 60-175 54, 77 Lipid Panel 11/28/2008 Cholesterol 191 mg/dL 50-199 54 Triglycerides 156 mg/dL High 10-150 54 HDL 61 mg/dL 35-85 54, 78 Chol/HDL Ratio 3.1 Ratio Low 3.7-5.6 54, 79 VLDL 31 mg/dL High 2-29 54 LDL (Calc) 99 mg/dL 20-129 54, 80 CMP 11/28/2008 Sodium 143 mmol/L 135-144 54 Potassium 4.7 mmol/L 3.6-5.2 54 Chloride 105 mmol/L 97-110 54 Carbon Dioxide 27 mmol/L 23-33 54 Glucose 105 mg/dL 70-105 54 BUN 13 mg/dL 6-22 54 Creatinine 0.7 mg/dL 0.5-1.3 54 BUN/CR 19 Ratio 12.0-20.0 54 Calcium 9.8 mg/dL 8.6-10.2 54, 81 Total Protein 7.1 g/dL 5.8-7.8 54 Albumin 4.5 g/dL 3.5-4.8 54 Globulin 2.6 g/dL 2.0-3.5 54 A/G Ratio 1.7 Ratio 1.0-2.2 54 Total Bilirubin 1.0 mg/dL 0.3-1.2 54 Alkaline Phosphatase 63 U/L 24-140 54 Alt 15 U/L 4-45 54 Ast 22 U/L 12-40 54 Anion Gap 16 mmol/L 8-16 54 GFR Calculation > 60 mL/min 60-175 54, 82 GFR For > 60 mL/min 60-175 54, 83 Laboratory test finding 07/04/2008 Free T4 0.74 ng/dL 0.50-1.60 54 TSH 1.21 uIU/ml 0.34-5.60 54 Lipid Panel 07/04/2008 Cholesterol 194 mg/dL 50-199 54 Triglycerides 174 mg/dL High 10-150 54 HDL 49 mg/dL 35-85 54, 84 Chol/HDL Ratio 4.0 Ratio 54, 85 VLDL 35 mg/dL 54 LDL (Calc) 110 mg/dL 20-129 54, 86 CMP 07/04/2008 Sodium 141 mmol/L 135-144 54 Potassium 4.8 mmol/L 3.6-5.2 54 Chloride 106 mmol/L 97-110 54 Carbon Dioxide 26 mmol/L 23-33 54 Glucose 106 mg/dL High 70-105 54 BUN 7 mg/dL 6-22 54 Creatinine 0.7 mg/dL 0.5-1.3 54 BUN/CR 10 Ratio Low 12.0-20.0 54 Calcium 9.4 mg/dL 8.6-10.2 54 Total Protein 6.5 g/dL 5.8-7.8 54 Albumin 4.0 g/dL 3.5-4.8 54 Globulin 2.5 g/dL 2.0-3.5 54 A/G Ratio 1.6 Ratio 1.0-2.2 54 Total Bilirubin 0.9 mg/dL 0.3-1.2 54 Alkaline Phosphatase 69 U/L 24-140 54 Alt 17 U/L 4-45 54 Ast 22 U/L 12-40 54 Anion Gap 14 mmol/L 8-16 54 GFR Calculation > 60 mL/min 54, 87 GFR For > 60 mL/min 54, 88 CBC With Auto Diff 02/29/2008 WBC 5.0 K/ul 4.0-10.9 89 RBC 4.30 M/ul 4.20-5.40 89 Hemoglobin 13.7 GM/dl 12.5-16.0 89 Hematocrit 40.5 % 36.0-47.0 89 MCV 94.3 FL 80.0-97.0 89 MCH 31.9 pg High 27.0-31.0 89 MCHC 33.8 g/dL 32.0-36.0 89 RDW 13.5 % 11.5-14.5 89 Platelet Count 282 K/ul 140-440 89 Neutrophils 62.1 % 50-70 89 Lymphocytes 29.1 % 20-44 89 Monocytes 6.1 % 2-9 89 Eosinophil 2.1 % 0-4 89 Basophil 0.6 % 0-2 89 Absolute Neutrophils 3.1 K/ul 2.05-7.63 89 Absolute Lymphocytes 1.5 K/ul 0.8-4.8 89 Absolute Monocytes 0.3 K/ul 0.1-1.0 89 Absolute Eosinophils 0.1 K/ul 0.1-0.5 89 Absolute Basophils 0.0 K/ul Low 0.1-0.3 89 Lipid Panel 02/29/2008 Cholesterol 209 mg/dL High 50-199 89 Triglycerides 227 mg/dL High 10-150 89 HDL 53 mg/dL 35-85 89 Chol/HDL Ratio 3.9 Ratio 89 VLDL 45 mg/dL 89 LDL (Calc) 111 mg/dL 20-129 89 CMP 02/29/2008 Sodium 140 mmol/L 135-144 89 Potassium 4.4 mmol/L 3.6-5.2 89 Chloride 103 mmol/L 97-110 89 Carbon Dioxide 29 mmol/L 23-33 89 Glucose 103 mg/dL (70-99) 89 BUN 8 mg/dL 6-22 89 Creatinine 0.8 mg/dL 0.5-1.3 89 BUN/CR 10 Ratio Low 12.0-20.0 89 Calcium 9.3 mg/dL 8.6-10.2 89 Total Protein 6.7 g/dL 5.8-7.8 89 Albumin 4.1 g/dL 3.5-4.8 89 Globulin 2.6 g/dL 2.0-3.5 89 A/G Ratio 1.6 Ratio 1.0-2.2 89 Total Bilirubin 0.8 mg/dL 0.3-1.2 89 Alkaline Phosphatase 71 U/L 24-140 89 Alt 18 U/L 4-45 89 Ast 23 U/L 12-40 89 Anion Gap 12 mmol/L 8-16 89 GFR Calculation > 60 mL/min 89, 90 GFR For > 60 mL/min 89, 91 Lipid Panel 08/24/2007 Cholesterol 208 mg/dL High 50-199 89 Triglycerides 166 mg/dL High 10-150 89 HDL 52 mg/dL 35-85 89 Chol/HDL Ratio 4.0 Ratio 89 VLDL 33 mg/dL 89 LDL (Calc) 123 mg/dL 20-129 89 [facility] 08/24/2007 Sodium 143 mmol/L 135-144 89 Potassium 4.8 mmol/L 3.6-5.2 89 Chloride 108 mmol/L 97-110 89 Carbon Dioxide 28 mmol/L 23-33 89 Glucose 112 mg/dL High 70-105 89 BUN 9 mg/dL 6-22 89 Creatinine 0.7 mg/dL 0.5-1.3 89 BUN/CR 13 Ratio 12.0-20.0 89 Calcium 9.3 mg/dL 8.6-10.2 89 Total Protein 6.6 g/dL 5.8-7.8 89 Albumin 4.2 g/dL 3.5-4.8 89 Globulin 2.4 g/dL 2.0-3.5 89 A/G Ratio 1.8 Ratio 1.0-2.2 89 Total Bilirubin 1.0 mg/dL 0.3-1.2 89 Alkaline Phosphatase 66 U/L 24-140 89 Alt 18 U/L 4-45 89 Ast 25 U/L 12-40 89 Anion Gap 12 mmol/L 8-16 89 GFR Calculation > 60 mL/min 89, 92 GFR For > 60 mL/min 89, 93 CMP 02/23/2007 Sodium 141 mmol/L 135-144 89 Potassium 4.7 mmol/L 3.6-5.2 89 Chloride 104 mmol/L 97-110 89 Carbon Dioxide 30 mmol/L 23-33 89 Glucose 97 mg/dL 70-105 89 BUN 17 mg/dL 6-22 89 Creatinine 0.8 mg/dL 0.5-1.3 89 BUN/CR 21 Ratio High 12.0-20.0 89 Calcium 9.1 mg/dL 8.6-10.2 89 Total Protein 6.2 g/dL 5.8-7.8 89 Albumin 4.0 g/dL 3.5-4.8 89 Globulin 2.2 g/dL 2.0-3.5 89 A/G Ratio 1.8 Ratio 1.0-2.2 89 Total Bilirubin 0.9 mg/dL 0.3-1.2 89 Alkaline Phosphatase 62 U/L 24-140 89 Alt 15 U/L 4-45 89 Ast 22 U/L 12-40 89 Anion Gap 12 mmol/L 8-16 89 GFR Calculation > 60 mL/min 89, 94 GFR For > 60 mL/min 89, 95 Lipid Panel 02/23/2007 Cholesterol 192 mg/dL 50-199 89 Triglycerides 133 mg/dL 10-150 89 HDL 53 mg/dL 35-85 89 Chol/HDL Ratio 3.6 Ratio 89 VLDL 27 mg/dL 89 LDL (Calc) 112 mg/dL 20-129 89 CBC With Auto Diff 07/10/2006 WBC 4.9 K/ul 4.0-10.9 89 RBC 4.27 M/ul 4.20-5.40 89 Hemoglobin 13.5 GM/dl 12.5-16.0 89 Hematocrit 39.9 % 36.0-47.0 89 MCV 93.5 FL 80.0-97.0 89 MCH 31.6 pg High 27.0-31.0 89 MCHC 33.8 g/dL 32.0-36.0 89 RDW 12.8 % 11.5-14.5 89 Platelet Count 266 K/ul 140-440 89 Neutrophils 58.6 % 50-70 89 Lymphocytes 31.5 % 20-44 89 Monocytes 6.1 % 2-9 89 Eosinophil 3.2 % 0-4 89 Basophil 0.6 % 0-2 89 Absolute Neutrophils 2.9 K/ul 2.05-7.63 89 Absolute Lymphocytes 1.5 K/ul 0.8-4.8 89 Absolute Monocytes 0.3 K/ul 0.1-1.0 89 Absolute Eosinophils 0.2 K/ul 0.1-0.5 89 Absolute Basophils 0.0 K/ul Low 0.1-0.3 89 CMP 07/10/2006 Sodium 140 mmol/L 135-144 89 Potassium 4.8 mmol/L 3.6-5.2 89 Chloride 103 mmol/L 97-110 89 Carbon Dioxide 31 mmol/L 23-33 89 Glucose 93 mg/dL 70-105 89 BUN 9 mg/dL 6-22 89 Creatinine 0.9 mg/dL 0.5-1.3 89 BUN/CR 10 Ratio Low 12.0-20.0 89 Calcium 9.1 mg/dL 8.6-10.2 89 Total Protein 6.2 g/dL 5.8-7.8 89 Albumin 4.0 g/dL 3.5-4.8 89 Globulin 2.2 g/dL 2.0-3.5 89 A/G Ratio 1.8 Ratio 1.0-2.2 89 Total Bilirubin 0.7 mg/dL 0.3-1.2 89 Alkaline Phosphatase 74 U/L 24-140 89 Alt 17 U/L 4-45 89 Ast 24 U/L 12-40 89 Anion Gap 11 mmol/L 8-16 89 GFR White Male 88 89 GFR White Female 65 89 GFR Black Male 107 89 GFR Black Female 79 89 GFR Guidelines 0 89, 96 Lipid TX Panel 07/10/2006 Ast 24 U/L 12-40 89 Alt 17 U/L 4-45 89 Cholesterol 179 mg/dL 50-199 89 Triglycerides 158 mg/dL High 10-150 89 HDL 54 mg/dL 35-85 89 LDL (Calc) 93 mg/dL 20-129 89 Chol/HDL Ratio 3.3 Ratio 89 VLDL 32 mg/dL 89 Lipid TX Panel 03/12/2006 Ast 20 U/L 12-40 89 Alt 16 U/L 4-45 89 Cholesterol 198 mg/dL 50-199 89 Triglycerides 163 mg/dL High 10-150 89 HDL 51 mg/dL 35-85 89 LDL (Calc) 114 mg/dL 20-129 89 Chol/HDL Ratio 3.9 Ratio 89 VLDL 33 mg/dL 89 Basic (BMP) 03/12/2006 Sodium 140 mmol/L 135-144 89 Potassium 4.4 mmol/L 3.6-5.2 89 Chloride 103 mmol/L 97-110 89 Carbon Dioxide 29 mmol/L 23-33 89 Glucose 101 mg/dL 70-105 89 BUN 12 mg/dL 6-22 89 Creatinine 0.8 mg/dL 0.5-1.3 89 BUN/CR 15 Ratio 12.0-20.0 89 Anion Gap 12 mmol/L 8-16 89 Calcium 9.0 mg/dL 8.6-10.2 89 GFR White Male 101 89 GFR White Female 75 89 GFR Black Male 123 89 GFR Black Female 91 89 GFR Guidelines 0 89, 97 Lipid TX Panel 11/14/2005 Ast 22 U/L 12-40 89 Alt 18 U/L 4-45 89 Cholesterol 181 mg/dL 50-199 89 Triglycerides 191 mg/dL High 10-150 89 HDL 56 mg/dL 35-85 89 LDL (Calc) 87 mg/dL 20-129 89 Chol/HDL Ratio 3.2 Ratio 89 VLDL 38 mg/dL 89 Basic (BMP) 11/14/2005 Sodium 142 mmol/L 135-144 89 Potassium 4.5 mmol/L 3.6-5.2 89 Chloride 103 mmol/L 97-110 89 Carbon Dioxide 29 mmol/L 23-33 89 Glucose 89 mg/dL 70-105 89 BUN 9 mg/dL 6-22 89 Creatinine 0.8 mg/dL 0.5-1.3 89 BUN/CR 11 Ratio Low 12.0-20.0 89 Anion Gap 15 mmol/L 8-16 89 Calcium 9.1 mg/dL 8.6-10.2 89 GFR White Male 101 89 GFR White Female 75 89 GFR Black Male 123 89 GFR Black Female 91 89 GFR Guidelines 0 89, 98 CBC 07/17/2005 WBC 4.4 K/ul 4.1-10.9 89 RBC 4.32 M/ul 4.20-6.30 89 Hemoglobin 13.7 GM/dl 12.5-15.0 89 Hematocrit 41.3 % 36.0-47.0 89 MCV 95.7 FL 80.0-97.0 89 MCH 31.7 pg 26.0-32.0 89 MCHC 33.1 g/dL 31.0-36.0 89 RDW 13.0 % 11.5-14.5 89 Platelet Count 282 K/ul 140-440 89 Neutrophils 59.5 % 50-70 89 Lymphocytes 33.0 % 20-44 89 Monocytes 6.1 % 2-9 89 Eosinophil 1.2 % 0-4 89 Basophil 0.2 % 0-2 89 Absolute Neutrophils 2.5 K/ul 2.05-7.63 89 Absolute Lymphocytes 1.5 K/ul 0.8-4.8 89 Absolute Monocytes 0.3 K/ul 0.1-1.0 89 Absolute Eosinophils 0.1 K/ul 0.1-0.5 89 Absolute Basophils 0.0 K/ul Low 0.1-0.3 89 Laboratory test finding 07/17/2005 TSH 1.64 uIU/ml 0.50-6.00 89 Lipid Panel 07/17/2005 Cholesterol 210 mg/dL High 50-199 89 Triglycerides 127 mg/dL 10-150 89 HDL 59 mg/dL 35-85 89 Chol/HDL Ratio 3.6 Ratio 89 VLDL 25 mg/dL 89 LDL (Calc) 126 mg/dL High 20-100 89 CMP 07/17/2005 Sodium 142 mmol/L 135-144 89 Potassium 5.0 mmol/L 3.6-5.2 89 Chloride 105 mmol/L 97-110 89 Carbon Dioxide 30 mmol/L 22-32 89 Glucose 76 mg/dL 70-105 89 BUN 12 mg/dL 6-22 89 Creatinine 0.8 mg/dL 0.5-1.3 89 BUN/CR 15 Ratio 12.0-20.0 89 Calcium 9.0 mg/dL 8.6-10.2 89, 99 Total Protein 6.2 g/dL 5.8-7.8 89 Albumin 4.1 g/dL 3.5-4.8 89 Globulin 2.1 g/dL 2.0-3.5 89 A/G Ratio 2.0 Ratio 1.0-2.2 89 Total Bilirubin 1.1 mg/dL 0.3-1.2 89 Ast 22 U/L 12-40 89 Alt 19 U/L 4-45 89 Alkaline Phosphatase 73 U/L 32-91 89 Anion Gap 12 mmol/L 8-16 89 Lipid TX Panel 04/15/2005 Ast 20 U/L 8-42 Alt 14 U/L 3-42 Cholesterol 171 mg/dL 50-199 Triglycerides 229 mg/dL High 30-200 HDL 47 mg/dL 35-85 LDL (Calc) 78 mg/dL 20-129 Chol/HDL Ratio 3.6 Ratio VLDL 46 mg/dL Lipid Panel 01/14/2005 Cholesterol 259 mg/dL High 50-199 Triglycerides 154 mg/dL 30-200 HDL 61 mg/dL 35-85 Chol/HDL Ratio 4.3 Ratio VLDL 31 mg/dL LDL (Calc) 167 mg/dL High 20-129 Lipid TX Panel 09/21/2004 Ast 20 U/L 8-42 Alt 17 U/L 3-42 Cholesterol 253 mg/dL High 50-199 Triglycerides 189 mg/dL 30-200 HDL 55 mg/dL 35-85 LDL (Calc) 160 mg/dL High 20-129 Chol/HDL Ratio 4.6 Ratio VLDL 38 mg/dL Lipid Panel 05/21/2004 Cholesterol 246 mg/dL High 50-199 Triglycerides 113 mg/dL 30-200 HDL 57 mg/dL 35-85 Chol/HDL Ratio 4.3 Ratio VLDL 23 mg/dL LDL (Calc) 166 mg/dL High 20-129 CMP 05/21/2004 Sodium 141 mmol/L 135-145 Potassium 3.9 mmol/L 3.4-5.3 Chloride 105 mmol/L 98-111 Carbon Dioxide 28 mmol/L 22-33 Glucose 111 mg/dL High 70-105 BUN 10 mg/dL 6-26 Creatinine 0.8 mg/dL 0.5-1.5 BUN/CR 13 Ratio 12.0-20.0 Calcium 9.5 mg/dL 8.6-10.3 Total Protein 7.4 g/dL 6.2-8.3 Albumin 4.5 g/dL 3.5-5.0 Globulin 2.9 g/dL 2.7-4.3 A/G Ratio 1.6 Ratio 1.0-2.2 Total Bilirubin 1.0 mg/dL 0.1-1.3 Ast 21 U/L 8-42 Alt 18 U/L 3-42 Alkaline Phosphatase 85 U/L 24-140 Anion Gap 12 mmol/L 10-20 Laboratory test finding 05/21/2004 TSH 1.36 uIU/ml 0.50-6.00 Laboratory test finding 05/12/2003 Direct LDL 119 mg/dL 20-129 Lipid TX Panel 05/12/2003 Ast 26 U/L 8-42 Alt 18 U/L 3-42 Cholesterol 232 mg/dL High 50-199 Triglycerides 328 mg/dL High 30-200 HDL 46 mg/dL 35-85 LDL (Calc) Triglyceride parisa <SEE NOTE> mg/dL 20-129 100 Chol/HDL Ratio 5.0 Ratio VLDL 66 mg/dL CBC 11/02/2002 WBC 6.9 K/ul 4.1-10.9 RBC 4.50 M/ul 4.2-6.3 Hemoglobin 14.8 GM/dl 12.0-16.0 Hematocrit 43.8 % 37.0-51.0 MCV 97.2 FL High 80-97 MCH 32.8 pg High 26.0-32.0 MCHC 33.8 g/dL 31.0-36.0 RDW 12.7 % 11.5-14.5 Platelet Count 349 K/ul 140-440 Neutrophils 71.2 % High 50-70 Lymphocytes 23.1 % 20-44 Monocytes 4.4 % 2-9 Eosinophil 0.9 % 0-4 Basophil 0.4 % 0-2 Absolute Neutrophils 4.9 K/ul 2.05-7.63 Absolute Lymphocytes 1.6 K/ul 0.8-4.8 Absolute Monocytes 0.3 K/ul 0.1-1.0 Absolute Eosinophils 0.1 K/ul 0.1-0.5 Absolute Basophils 0.0 K/ul Low 0.1-0.3 Laboratory test finding 11/02/2002 Esr 19 MM/HR 0-20 TSH 1.68 uIU/ml 0.50-6.00 CMP 11/02/2002 Sodium 140 mmol/L 135-145 Potassium 3.3 mmol/L Low 3.4-5.3 Chloride 101 mmol/L 98-111 Carbon Dioxide 28 mmol/L 22-33 Glucose 104 mg/dL 70-105 BUN 7 mg/dL 6-26 Creatinine 0.8 mg/dL 0.5-1.5 BUN/CR 9 Ratio Low 12.0-20.0 Calcium 9.7 mg/dL 8.6-10.3 Total Protein 7.6 g/dL 6.2-8.3 Albumin 4.8 g/dL 3.5-5.0 Globulin 2.8 g/dL 2.7-4.3 A/G Ratio 1.7 Ratio 1.0-2.2 Total Bilirubin 0.9 mg/dL 0.1-1.3 Ast 26 U/L 8-42 Alt 22 U/L 3-42 Alkaline Phosphatase 82 U/L 24-140 Lipid Panel 11/02/2002 Cholesterol 254 mg/dL High 50-199 Triglycerides 238 mg/dL High 30-200 HDL 53 mg/dL 35-85 Chol/HDL Ratio 4.8 Ratio VLDL 48 mg/dL LDL (Calc) 153 mg/dL High 20-129 Laboratory test finding 11/02/2002 Alia Screen NEGATIVE 1 Concerning GFR Guidelines for Americans: Normal function or mild renal disease, if clinically at risk: >/=60 mL/min Moderately decreased: 30-59 Severely decreased: 15-29 Renal failure: <15 2 Concerning GFR Guidelines: Normal function or mild renal disease, if clinically at risk: >/=60 mL/min Moderately decreased: 30-59 Severely decreased: 15-29 Renal failure: <15 Glomerular Filtration Rate (GFR) is estimated based on the MDRD equation, which assumes a steady state for creatinine as recommended by the National Kidney Disease Education Program in conjunction with the National Institutes of Health and the National Kidney Foundation. Clinical conditions in which it may be necessary to measure GFR by using clearance methods include extremes of age and body size, severe malnutrition or obesity, diseases of skeletal muscle, paraplegia or quadriplegia, vegetarian diet, rapidly changing kidney function, and calculation of the dose of potentially toxic drugs that are excreted by the kidneys. 3 Per NCEP ATP III Guidelines: Results lower than 40 mg/dL are suggestive of increased risk for coronary artery disease. Results > or=to 60 mg/dL are considered a negative risk factor. 4 Per NCEP ATP III Guidelines: Normal Population <130 Patients with medical conditions: CHD/DM Optimal: <100 Borderline high: 130-159 High: 160-189 Very high: >189 5 This sample is drawn by: 6 Concerning GFR Guidelines for Americans: Normal function or mild renal disease, if clinically at risk: >/=60 mL/min Moderately decreased: 30-59 Severely decreased: 15-29 Renal failure: <15 7 Concerning GFR Guidelines: Normal function or mild renal disease, if clinically at risk: >/=60 mL/min Moderately decreased: 30-59 Severely decreased: 15-29 Renal failure: <15 Glomerular Filtration Rate (GFR) is estimated based on the MDRD equation, which assumes a steady state for creatinine as recommended by the National Kidney Disease Education Program in conjunction with the National Institutes of Health and the National Kidney Foundation. Clinical conditions in which it may be necessary to measure GFR by using clearance methods include extremes of age and body size, severe malnutrition or obesity, diseases of skeletal muscle, paraplegia or quadriplegia, vegetarian diet, rapidly changing kidney function, and calculation of the dose of potentially toxic drugs that are excreted by the kidneys. 8 Per NCEP ATP III Guidelines: Results lower than 40 mg/dL are suggestive of increased risk for coronary artery disease. Results > or=to 60 mg/dL are considered a negative risk factor. 9 Per NCEP ATP III Guidelines: Normal Population <130 Patients with medical conditions: CHD/DM Optimal: <100 Borderline high: 130-159 High: 160-189 Very high: >189 10 This sample is drawn by:CT 11 Concerning GFR Guidelines for Americans: Normal function or mild renal disease, if clinically at risk: >/=60 mL/min Moderately decreased: 30-59 Severely decreased: 15-29 Renal failure: <15 12 Concerning GFR Guidelines: Normal function or mild renal disease, if clinically at risk: >/=60 mL/min Moderately decreased: 30-59 Severely decreased: 15-29 Renal failure: <15 Glomerular Filtration Rate (GFR) is estimated based on the MDRD equation, which assumes a steady state for creatinine as recommended by the National Kidney Disease Education Program in conjunction with the National Institutes of Health and the National Kidney Foundation. Clinical conditions in which it may be necessary to measure GFR by using clearance methods include extremes of age and body size, severe malnutrition or obesity, diseases of skeletal muscle, paraplegia or quadriplegia, vegetarian diet, rapidly changing kidney function, and calculation of the dose of potentially toxic drugs that are excreted by the kidneys. 13 Per NCEP ATP III Guidelines: Results lower than 40 mg/dL are suggestive of increased risk for coronary artery disease. Results > or=to 60 mg/dL are considered a negative risk factor. 14 Per NCEP ATP III Guidelines: Normal Population <130 Patients with medical conditions: CHD/DM Optimal: <100 Borderline high: 130-159 High: 160-189 Very high: >189 15 This sample is drawn by: HW 16 Concerning GFR Guidelines for Americans: Normal function or mild renal disease, if clinically at risk: >/=60 mL/min Moderately decreased: 30-59 Severely decreased: 15-29 Renal failure: <15 17 Concerning GFR Guidelines: Normal function or mild renal disease, if clinically at risk: >/=60 mL/min Moderately decreased: 30-59 Severely decreased: 15-29 Renal failure: <15 Glomerular Filtration Rate (GFR) is estimated based on the MDRD equation, which assumes a steady state for creatinine as recommended by the National Kidney Disease Education Program in conjunction with the National Institutes of Health and the National Kidney Foundation. Clinical conditions in which it may be necessary to measure GFR by using clearance methods include extremes of age and body size, severe malnutrition or obesity, diseases of skeletal muscle, paraplegia or quadriplegia, vegetarian diet, rapidly changing kidney function, and calculation of the dose of potentially toxic drugs that are excreted by the kidneys. 18 Per NCEP ATP III Guidelines: Results lower than 40 mg/dL are suggestive of increased risk for coronary artery disease. Results > or=to 60 mg/dL are considered a negative risk factor. 19 Per NCEP ATP III Guidelines: Normal Population <130 Patients with medical conditions: CHD/DM Optimal: <100 Borderline high: 130-159 High: 160-189 Very high: >189 20 This sample is drawn by:CT 21 4.1 Specimen Slightly Hemolyzed 22 Concerning GFR Guidelines for Americans: Normal function or mild renal disease, if clinically at risk: >/=60 mL/min Moderately decreased: 30-59 Severely decreased: 15-29 Renal failure: <15 23 Concerning GFR Guidelines: Normal function or mild renal disease, if clinically at risk: >/=60 mL/min Moderately decreased: 30-59 Severely decreased: 15-29 Renal failure: <15 Glomerular Filtration Rate (GFR) is estimated based on the MDRD equation, which assumes a steady state for creatinine as recommended by the National Kidney Disease Education Program in conjunction with the National Institutes of Health and the National Kidney Foundation. Clinical conditions in which it may be necessary to measure GFR by using clearance methods include extremes of age and body size, severe malnutrition or obesity, diseases of skeletal muscle, paraplegia or quadriplegia, vegetarian diet, rapidly changing kidney function, and calculation of the dose of potentially toxic drugs that are excreted by the kidneys. 24 Concerning GFR Guidelines for Americans: Normal function or mild renal disease, if clinically at risk: >/=60 mL/min Moderately decreased: 30-59 Severely decreased: 15-29 Renal failure: <15 25 Concerning GFR Guidelines: Normal function or mild renal disease, if clinically at risk: >/=60 mL/min Moderately decreased: 30-59 Severely decreased: 15-29 Renal failure: <15 Glomerular Filtration Rate (GFR) is estimated based on the MDRD equation, which assumes a steady state for creatinine as recommended by the National Kidney Disease Education Program in conjunction with the National Institutes of Health and the National Kidney Foundation. Clinical conditions in which it may be necessary to measure GFR by using clearance methods include extremes of age and body size, severe malnutrition or obesity, diseases of skeletal muscle, paraplegia or quadriplegia, vegetarian diet, rapidly changing kidney function, and calculation of the dose of potentially toxic drugs that are excreted by the kidneys. 26 Per NCEP ATP III Guidelines: Results lower than 40 mg/dL are suggestive of increased risk for coronary artery disease. Results > or=to 60 mg/dL are considered a negative risk factor. 27 Per NCEP ATP III Guidelines: Normal Population <130 Patients with medical conditions: CHD/DM Optimal: <100 Borderline high: 130-159 High: 160-189 Very high: >189 28 Concerning GFR Guidelines for Americans: Normal function or mild renal disease, if clinically at risk: >/=60 mL/min Moderately decreased: 30-59 Severely decreased: 15-29 Renal failure: <15 29 Concerning GFR Guidelines: Normal function or mild renal disease, if clinically at risk: >/=60 mL/min Moderately decreased: 30-59 Severely decreased: 15-29 Renal failure: <15 Glomerular Filtration Rate (GFR) is estimated based on the MDRD equation, which assumes a steady state for creatinine as recommended by the National Kidney Disease Education Program in conjunction with the National Institutes of Health and the National Kidney Foundation. Clinical conditions in which it may be necessary to measure GFR by using clearance methods include extremes of age and body size, severe malnutrition or obesity, diseases of skeletal muscle, paraplegia or quadriplegia, vegetarian diet, rapidly changing kidney function, and calculation of the dose of potentially toxic drugs that are excreted by the kidneys. 30 Per NCEP ATP III Guidelines: Results lower than 40 mg/dL are suggestive of increased risk for coronary artery disease. Results > or=to 60 mg/dL are considered a negative risk factor. 31 Per NCEP ATP III Guidelines: Optimal: <100 Near optimal: 100-129 Borderline high: 130-159 High: 160-189 Very high: >189 32 This sample is drawn by:MM 33 Concerning GFR Guidelines for Americans: Normal function or mild renal disease, if clinically at risk: >/=60 mL/min Moderately decreased: 30-59 Severely decreased: 15-29 Renal failure: <15 34 Concerning GFR Guidelines: Normal function or mild renal disease, if clinically at risk: >/=60 mL/min Moderately decreased: 30-59 Severely decreased: 15-29 Renal failure: <15 Glomerular Filtration Rate (GFR) is estimated based on the MDRD equation, which assumes a steady state for creatinine as recommended by the National Kidney Disease Education Program in conjunction with the National Institutes of Health and the National Kidney Foundation. Clinical conditions in which it may be necessary to measure GFR by using clearance methods include extremes of age and body size, severe malnutrition or obesity, diseases of skeletal muscle, paraplegia or quadriplegia, vegetarian diet, rapidly changing kidney function, and calculation of the dose of potentially toxic drugs that are excreted by the kidneys. 35 Per NCEP ATP III Guidelines: Results lower than 40 mg/dL are suggestive of increased risk for coronary artery disease. Results > or=to 60 mg/dL are considered a negative risk factor. 36 Per NCEP ATP III Guidelines: Optimal: <100 Near optimal: 100-129 Borderline high: 130-159 High: 160-189 Very high: >189 37 This sample is drawn by:CT 38 Concerning GFR Guidelines for Americans: Normal function or mild renal disease, if clinically at risk: >/=60 mL/min Moderately decreased: 30-59 Severely decreased: 15-29 Renal failure: <15 39 Concerning GFR Guidelines: Normal function or mild renal disease, if clinically at risk: >/=60 mL/min Moderately decreased: 30-59 Severely decreased: 15-29 Renal failure: <15 Glomerular Filtration Rate (GFR) is estimated based on the MDRD equation, which assumes a steady state for creatinine as recommended by the National Kidney Disease Education Program in conjunction with the National Institutes of Health and the National Kidney Foundation. Clinical conditions in which it may be necessary to measure GFR by using clearance methods include extremes of age and body size, severe malnutrition or obesity, diseases of skeletal muscle, paraplegia or quadriplegia, vegetarian diet, rapidly changing kidney function, and calculation of the dose of potentially toxic drugs that are excreted by the kidneys. 40 Per NCEP ATP III Guidelines: Results lower than 40 mg/dL are suggestive of increased risk for coronary artery disease. Results > or=to 60 mg/dL are considered a negative risk factor. 41 Per NCEP ATP III Guidelines: Optimal: <100 Near optimal: 100-129 Borderline high: 130-159 High: 160-189 Very high: >189 42 Concerning GFR Guidelines for Americans: Normal function or mild renal disease, if clinically at risk: >/=60 mL/min Moderately decreased: 30-59 Severely decreased: 15-29 Renal failure: <15 43 Concerning GFR Guidelines: Normal function or mild renal disease, if clinically at risk: >/=60 mL/min Moderately decreased: 30-59 Severely decreased: 15-29 Renal failure: <15 Glomerular Filtration Rate (GFR) is estimated based on the MDRD equation, which assumes a steady state for creatinine as recommended by the National Kidney Disease Education Program in conjunction with the National Institutes of Health and the National Kidney Foundation. Clinical conditions in which it may be necessary to measure GFR by using clearance methods include extremes of age and body size, severe malnutrition or obesity, diseases of skeletal muscle, paraplegia or quadriplegia, vegetarian diet, rapidly changing kidney function, and calculation of the dose of potentially toxic drugs that are excreted by the kidneys. 44 Per NCEP ATP III Guidelines: Results lower than 40 mg/dL are suggestive of increased risk for coronary artery disease. Results > or=to 60 mg/dL are considered a negative risk factor. 45 Per NCEP ATP III Guidelines: Optimal: <100 Near optimal: 100-129 Borderline high: 130-159 High: 160-189 Very high: >189 46 Concerning GFR Guidelines: Normal function or mild renal disease, if clinically at risk: >/=60 mL/min Moderately decreased: 30-59 Severely decreased: 15-29 Renal failure: <15 Glomerular Filtration Rate (GFR) is estimated based on the MDRD equation, which assumes a steady state for creatinine as recommended by the National Kidney Disease Education Program in conjunction with the National Institutes of Health and the National Kidney Foundation. Clinical conditions in which it may be necessary to measure GFR by using clearance methods include extremes of age and body size, severe malnutrition or obesity, diseases of skeletal muscle, paraplegia or quadriplegia, vegetarian diet, rapidly changing kidney function, and calculation of the dose of potentially toxic drugs that are excreted by the kidneys. 47 Concerning GFR Guidelines for Americans: Normal function or mild renal disease, if clinically at risk: >/=60 mL/min Moderately decreased: 30-59 Severely decreased: 15-29 Renal failure: <15 48 Per NCEP ATP III Guidelines: Results lower than 40 mg/dL are suggestive of increased risk for coronary artery disease. Results > or=to 60 mg/dL are considered a negative risk factor. 49 Per NCEP ATP III Guidelines: Optimal: <100 Near optimal: 100-129 Borderline high: 130-159 High: 160-189 Very high: >189 50 Per NCEP ATP III Guidelines: Results lower than 40 mg/dL are suggestive of increased risk for coronary artery disease. Results > or=to 60 mg/dL are considered a negative risk factor. 51 Per NCEP ATP III Guidelines: Optimal: <100 Near optimal: 100-129 Borderline high: 130-159 High: 160-189 Very high: >189 52 Concerning GFR Guidelines: Normal function or mild renal disease, if clinically at risk: >/=60 mL/min Moderately decreased: 30-59 Severely decreased: 15-29 Renal failure: <15 Glomerular Filtration Rate (GFR) is estimated based on the MDRD equation, which assumes a steady state for creatinine as recommended by the National Kidney Disease Education Program in conjunction with the National Institutes of Health and the National Kidney Foundation. Clinical conditions in which it may be necessary to measure GFR by using clearance methods include extremes of age and body size, severe malnutrition or obesity, diseases of skeletal muscle, paraplegia or quadriplegia, vegetarian diet, rapidly changing kidney function, and calculation of the dose of potentially toxic drugs that are excreted by the kidneys. 53 Concerning GFR Guidelines for Americans: Normal function or mild renal disease, if clinically at risk: >/=60 mL/min Moderately decreased: 30-59 Severely decreased: 15-29 Renal failure: <15 54 FASTING This sample is drawn by:CT 55 PER NCEP ATP III GUIDELINES: RESULTS LOWER THAN 40 MG/DL ARE SUGGESTIVE OF INCREASED RISK FOR CORONARY ARTERY DISEASE. RESULTS > OR=TO 60 MG/DL ARE CONSIDERED A NEGATIVE RISK FACTOR. 56 INTERPRETATION OF CHOL-HDL RATIO CHD RISK FEMALE MALE VERY HIGH >8.3 >14.3 HIGH 5.6 - 8.3 6.7 - 14.3 AVERAGE 3.7 - 5.6 4.0 - 6.7 BELOW AVERAGE 2.5 - 3.7 2.7 - 4.0 PROTECTED <2.5 <2.7 57 PER NCEP ATP III GUIDELINES: OPTIMAL: <100 NEAR OPTIMAL: 100 - 129 BORDERLINE HIGH: 130 - 159 HIGH: 160 - 189 VERY HIGH: >189 58 Concerning GFR GUIDELINES: Normal Function or Mild Renal Disease, if clinically at risk: >/=60mL/min Moderately decreased: 30-59 Severely decreased: 15-29 Renal Failure: <15 Glomerular Filtration Rate (GFR) is estimated based on the MDRD equation, which assumes a steady state for creatinine as recommended by the National Kidney Disease Education Program in conjunction with the National Institutes of Health and the National Kidney Foundation. Clinical conditions in which it may be necessary to measure GFR by using clearance methods include extremes of age and body size, severe malnutrition or obesity, diseases of skeletal muscle, paraplegia or quadriplegia, vegetarian diet, rapidly changing kidney function, and calculation of the dose of potentially toxic drugs that are excreted by the kidneys. 59 Concerning GFR GUIDELINES: Normal Function or Mild Renal Disease, if clinically at risk: >/=60mL/min Moderately decreased: 30-59 Severely decreased: 15-29 Renal Failure: <15 60 Concerning GFR GUIDELINES: Normal Function or Mild Renal Disease, if clinically at risk: >/=60mL/min Moderately decreased: 30-59 Severely decreased: 15-29 Renal Failure: <15 Glomerular Filtration Rate (GFR) is estimated based on the MDRD equation, which assumes a steady state for creatinine as recommended by the National Kidney Disease Education Program in conjunction with the National Institutes of Health and the National Kidney Foundation. Clinical conditions in which it may be necessary to measure GFR by using clearance methods include extremes of age and body size, severe malnutrition or obesity, diseases of skeletal muscle, paraplegia or quadriplegia, vegetarian diet, rapidly changing kidney function, and calculation of the dose of potentially toxic drugs that are excreted by the kidneys. 61 Concerning GFR GUIDELINES: Normal Function or Mild Renal Disease, if clinically at risk: >/=60mL/min Moderately decreased: 30-59 Severely decreased: 15-29 Renal Failure: <15 62 PER NCEP ATP III GUIDELINES: RESULTS LOWER THAN 40 MG/DL ARE SUGGESTIVE OF INCREASED RISK FOR CORONARY ARTERY DISEASE. RESULTS > OR=TO 60 MG/DL ARE CONSIDERED A NEGATIVE RISK FACTOR. 63 INTERPRETATION OF CHOL-HDL RATIO CHD RISK FEMALE MALE VERY HIGH >8.3 >14.3 HIGH 5.6 - 8.3 6.7 - 14.3 AVERAGE 3.7 - 5.6 4.0 - 6.7 BELOW AVERAGE 2.5 - 3.7 2.7 - 4.0 PROTECTED <2.5 <2.7 64 PER NCEP ATP III GUIDELINES: OPTIMAL: <100 NEAR OPTIMAL: 100 - 129 BORDERLINE HIGH: 130 - 159 HIGH: 160 - 189 VERY HIGH: >189 65 PER NCEP ATP III GUIDELINES: RESULTS LOWER THAN 40 MG/DL ARE SUGGESTIVE OF INCREASED RISK FOR CORONARY ARTERY DISEASE. RESULTS > OR=TO 60 MG/DL ARE CONSIDERED A NEGATIVE RISK FACTOR. 66 INTERPRETATION OF CHOL-HDL RATIO CHD RISK FEMALE MALE VERY HIGH >8.3 >14.3 HIGH 5.6 - 8.3 6.7 - 14.3 AVERAGE 3.7 - 5.6 4.0 - 6.7 BELOW AVERAGE 2.5 - 3.7 2.7 - 4.0 PROTECTED <2.5 <2.7 67 PER NCEP ATP III GUIDELINES: OPTIMAL: <100 NEAR OPTIMAL: 100 - 129 BORDERLINE HIGH: 130 - 159 HIGH: 160 - 189 VERY HIGH: >189 68 The difference between the most recent result of 5.9 and the current result of 4.6 exceeds the absolute delta value of 0.5 as defined for this test. 69 The difference between the most recent result of 9.7 and the current result of 9.3 exceeds the absolute delta value of 0.3 as defined for this test. 70 Concerning GFR GUIDELINES: Normal Function or Mild Renal Disease, if clinically at risk: >/=60mL/min Moderately decreased: 30-59 Severely decreased: 15-29 Renal Failure: <15 Glomerular Filtration Rate (GFR) is estimated based on the MDRD equation, which assumes a steady state for creatinine as recommended by the National Kidney Disease Education Program in conjunction with the National Institutes of Health and the National Kidney Foundation. Clinical conditions in which it may be necessary to measure GFR by using clearance methods include extremes of age and body size, severe malnutrition or obesity, diseases of skeletal muscle, paraplegia or quadriplegia, vegetarian diet, rapidly changing kidney function, and calculation of the dose of potentially toxic drugs that are excreted by the kidneys. 71 Concerning GFR GUIDELINES: Normal Function or Mild Renal Disease, if clinically at risk: >/=60mL/min Moderately decreased: 30-59 Severely decreased: 15-29 Renal Failure: <15 72 PER NCEP ATP III GUIDELINES: RESULTS LOWER THAN 40 MG/DL ARE SUGGESTIVE OF INCREASED RISK FOR CORONARY ARTERY DISEASE. RESULTS > OR=TO 60 MG/DL ARE CONSIDERED A NEGATIVE RISK FACTOR. 73 INTERPRETATION OF CHOL-HDL RATIO CHD RISK FEMALE MALE VERY HIGH >8.3 >14.3 HIGH 5.6 - 8.3 6.7 - 14.3 AVERAGE 3.7 - 5.6 4.0 - 6.7 BELOW AVERAGE 2.5 - 3.7 2.7 - 4.0 PROTECTED <2.5 <2.7 74 PER NCEP ATP III GUIDELINES: OPTIMAL: <100 NEAR OPTIMAL: 100 - 129 BORDERLINE HIGH: 130 - 159 HIGH: 160 - 189 VERY HIGH: >189 75 SPECIMEN SLIGHTLY HEMOLYZED/RESULTS FAXED AT 1905 ON 04/03/09-TJ The difference between the most recent result of 4.7 and the current result of 5.9 exceeds the absolute delta value of 0.5 as defined for this test. 76 Concerning GFR GUIDELINES: Normal Function or Mild Renal Disease, if clinically at risk: >/=60mL/min Moderately decreased: 30-59 Severely decreased: 15-29 Renal Failure: <15 Glomerular Filtration Rate (GFR) is estimated based on the MDRD equation, which assumes a steady state for creatinine as recommended by the National Kidney Disease Education Program in conjunction with the National Institutes of Health and the National Kidney Foundation. Clinical conditions in which it may be necessary to measure GFR by using clearance methods include extremes of age and body size, severe malnutrition or obesity, diseases of skeletal muscle, paraplegia or quadriplegia, vegetarian diet, rapidly changing kidney function, and calculation of the dose of potentially toxic drugs that are excreted by the kidneys. 77 Concerning GFR GUIDELINES: Normal Function or Mild Renal Disease, if clinically at risk: >/=60mL/min Moderately decreased: 30-59 Severely decreased: 15-29 Renal Failure: <15 78 PER NCEP ATP III GUIDELINES: RESULTS LOWER THAN 40 MG/DL ARE SUGGESTIVE OF INCREASED RISK FOR CORONARY ARTERY DISEASE. RESULTS > OR=TO 60 MG/DL ARE CONSIDERED A NEGATIVE RISK FACTOR. 79 INTERPRETATION OF CHOL-HDL RATIO CHD RISK FEMALE MALE VERY HIGH >8.3 >14.3 HIGH 5.6 - 8.3 6.7 - 14.3 AVERAGE 3.7 - 5.6 4.0 - 6.7 BELOW AVERAGE 2.5 - 3.7 2.7 - 4.0 PROTECTED <2.5 <2.7 80 PER NCEP ATP III GUIDELINES: OPTIMAL: <100 NEAR OPTIMAL: 100 - 129 BORDERLINE HIGH: 130 - 159 HIGH: 160 - 189 VERY HIGH: >189 81 The difference between the most recent result of 9.4 and the current result of 9.8 exceeds the absolute delta value of 0.3 as defined for this test. 82 Concerning GFR GUIDELINES: Normal Function or Mild Renal Disease, if clinically at risk: >/=60mL/min Moderately decreased: 30-59 Severely decreased: 15-29 Renal Failure: <15 Glomerular Filtration Rate (GFR) is estimated based on the MDRD equation, which assumes a steady state for creatinine as recommended by the National Kidney Disease Education Program in conjunction with the National Institutes of Health and the National Kidney Foundation. Clinical conditions in which it may be necessary to measure GFR by using clearance methods include extremes of age and body size, severe malnutrition or obesity, diseases of skeletal muscle, paraplegia or quadriplegia, vegetarian diet, rapidly changing kidney function, and calculation of the dose of potentially toxic drugs that are excreted by the kidneys. 83 Concerning GFR GUIDELINES: Normal Function or Mild Renal Disease, if clinically at risk: >/=60mL/min Moderately decreased: 30-59 Severely decreased: 15-29 Renal Failure: <15 84 PER NCEP ATP III GUIDELINES: RESULTS LOWER THAN 40 MG/DL ARE SUGGESTIVE OF INCREASED RISK FOR CORONARY ARTERY DISEASE. RESULTS > OR=TO 60 MG/DL ARE CONSIDERED A NEGATIVE RISK FACTOR. 85 INTERPRETATION OF CHOL-HDL RATIO CHD RISK FEMALE MALE VERY HIGH >8.3 >14.3 HIGH 5.6 - 8.3 6.7 - 14.3 AVERAGE 3.7 - 5.6 4.0 - 6.7 BELOW AVERAGE 2.5 - 3.7 2.7 - 4.0 PROTECTED <2.5 <2.7 86 PER NCEP ATP III GUIDELINES: OPTIMAL: <100 NEAR OPTIMAL: 100 - 129 BORDERLINE HIGH: 130 - 159 HIGH: 160 - 189 VERY HIGH: >189 87 Concerning GFR GUIDELINES: Normal Function or Mild Renal Disease, if clinically at risk: >/=60mL/min Moderately decreased: 30-59 Severely decreased: 15-29 Renal Failure: <15 Glomerular Filtration Rate (GFR) is estimated based on the MDRD equation, which assumes a steady state for creatinine as recommended by the National Kidney Disease Education Program in conjunction with the National Institutes of Health and the National Kidney Foundation. Clinical conditions in which it may be necessary to measure GFR by using clearance methods include extremes of age and body size, severe malnutrition or obesity, diseases of skeletal muscle, paraplegia or quadriplegia, vegetarian diet, rapidly changing kidney function, and calculation of the dose of potentially toxic drugs that are excreted by the kidneys. 88 Concerning GFR GUIDELINES: Normal Function or Mild Renal Disease, if clinically at risk: >/=60mL/min Moderately decreased: 30-59 Severely decreased: 15-29 Renal Failure: <15 89 FASTING 90 Concerning GFR GUIDELINES: Normal Function or Mild Renal Disease, if clinically at risk: >/=60mL/min Moderately decreased: 30-59 Severely decreased: 15-29 Renal Failure: <15 Glomerular Filtration Rate (GFR) is estimated based on the MDRD equation, which assumes a steady state for creatinine as recommended by the National Kidney Disease Education Program in conjunction with the National Institutes of Health and the National Kidney Foundation. Clinical conditions in which it may be necessary to measure GFR by using clearance methods include extremes of age and body size, severe malnutrition or obesity, diseases of skeletal muscle, paraplegia or quadriplegia, vegetarian diet, rapidly changing kidney function, and calculation of the dose of potentially toxic drugs that are excreted by the kidneys. 91 Concerning GFR GUIDELINES: Normal Function or Mild Renal Disease, if clinically at risk: >/=60mL/min Moderately decreased: 30-59 Severely decreased: 15-29 Renal Failure: <15 92 Concerning GFR GUIDELINES: Normal Function or Mild Renal Disease, if clinically at risk: >/=60mL/min Moderately decreased: 30-59 Severely decreased: 15-29 Renal Failure: <15 Glomerular Filtration Rate (GFR) is estimated based on the MDRD equation, which assumes a steady state for creatinine as recommended by the National Kidney Disease Education Program in conjunction with the National Institutes of Health and the National Kidney Foundation. Clinical conditions in which it may be necessary to measure GFR by using clearance methods include extremes of age and body size, severe malnutrition or obesity, diseases of skeletal muscle, paraplegia or quadriplegia, vegetarian diet, rapidly changing kidney function, and calculation of the dose of potentially toxic drugs that are excreted by the kidneys. 93 Concerning GFR GUIDELINES: Normal Function or Mild Renal Disease, if clinically at risk: >/=60mL/min Moderately decreased: 30-59 Severely decreased: 15-29 Renal Failure: <15 94 Concerning GFR GUIDELINES: Normal Function or Mild Renal Disease, if clinically at risk: >/=60mL/min Moderately decreased: 30-59 Severely decreased: 15-29 Renal Failure: <15 Glomerular Filtration Rate (GFR) is estimated based on the MDRD equation, which assumes a steady state for creatinine as recommended by the National Kidney Disease Education Program in conjunction with the National Institutes of Health and the National Kidney Foundation. Clinical conditions in which it may be necessary to measure GFR by using clearance methods include extremes of age and body size, severe malnutrition or obesity, diseases of skeletal muscle, paraplegia or quadriplegia, vegetarian diet, rapidly changing kidney function, and calculation of the dose of potentially toxic drugs that are excreted by the kidneys. 95 Concerning GFR GUIDELINES: Normal Function or Mild Renal Disease, if clinically at risk: >/=60mL/min Moderately decreased: 30-59 Severely decreased: 15-29 Renal Failure: <15 96 Normal Function or Mild Renal Disease, if clinically at risk: >/=60 mL/ min Moderately decreased: 30-59 Severely decreased: 15-29 Renal Failure: <15 Glomerular Filtration Rate (GFR) is estimated based on the MDRD equation, which assumes a steady state for creatinine as recommended by the National Kidney Disease Education Program in conjunction with the National Institutes of Health and the National Kidney Foundation. Clinical conditions in which it may be necessary to measure GFR by using clearance methods include extremes of age and body size, severe malnutrition or obesity, diseases of skeletal muscle, paraplegia or quadriplegia, vegetarian diet, rapidly changing kidney function, and calculation of the dose of potentially toxic drugs that are excreted by the kidneys. 97 Normal Function or Mild Renal Disease, if clinically at risk: >/=60 mL/ min Moderately decreased: 30-59 Severely decreased: 15-29 Renal Failure: <15 Glomerular Filtration Rate (GFR) is estimated based on the MDRD equation, which assumes a steady state for creatinine as recommended by the National Kidney Disease Education Program in conjunction with the National Institutes of Health and the National Kidney Foundation. Clinical conditions in which it may be necessary to measure GFR by using clearance methods include extremes of age and body size, severe malnutrition or obesity, diseases of skeletal muscle, paraplegia or quadriplegia, vegetarian diet, rapidly changing kidney function, and calculation of the dose of potentially toxic drugs that are excreted by the kidneys. 98 Normal Function or Mild Renal Disease, if clinically at risk: >/=60 mL/ min Moderately decreased: 30-59 Severely decreased: 15-29 Renal Failure: <15 Glomerular Filtration Rate (GFR) is estimated based on the MDRD equation, which assumes a steady state for creatinine as recommended by the National Kidney Disease Education Program in conjunction with the National Institutes of Health and the National Kidney Foundation. Clinical conditions in which it may be necessary to measure GFR by using clearance methods include extremes of age and body size, severe malnutrition or obesity, diseases of skeletal muscle, paraplegia or quadriplegia, vegetarian diet, rapidly changing kidney function, and calculation of the dose of potentially toxic drugs that are excreted by the kidneys. 99 The difference between the most recent result of 9.5 and the current result of 9.0 exceeds the absolute delta value of 0.3 as defined for this test. 100 Triglyceride value >250 mg/dl, see Direct LDL result Procedures Date CPT Code Description Status 11/29/2014 10994 Admin Of Inj (Therapeutic Phrophylactic Or Diagnostic Completed Subq Inj 12/15/2013 25445 Electrocardiogram Complete Completed 05/16/2009 46290 Admin Of Inj (Therapeutic Phrophylactic Or Diagnostic Completed Subq Inj 10/19/2008 Mammogram Completed 11/01/2005 60611 Duplex Scan Extracranial Arteries, Complete Bilateral Completed Study 10/29/2002 02617 Doppler Color Flow Velocity Mapping Completed 10/29/2002 40930 Doppler Echocardiography Complete Completed 10/29/2002 54136 ECHO Complete W/O Spectral Or Color Doppler Completed 10/07/2002 40788 Electrocardiogram Complete Completed 11/05/2000 71065 Electrocardiogram Complete Completed Encounters Type Date Location Provider CPT E/M Dx Office Visit 01/09/2016 8:20[place] [address] I10 F32.9 E78.2 M81.0 J30.1 Office Visit 05/30/2015 8:00a [place] [address] Z00.00 S81.802A J30.1 M81.0 I10 E78.2 F32.9 Z23 Office Visit 11/29/2014 8:20[place] [address] V04.81 311 272.2 401.1 733.00 477.0 V03.82 Office Visit 04/07/2014 8:20a Vane Ferrari MD G0438 V70.0 272.2 401.1 311 733.00 477.0 Office Visit 12/15/2013 8:20a Cindy Padron, RN MS QUALITY AUDIT REPRESENTATIVE 34935 311 244.9 272.2 401.1 733.00 794.31 465.9 Office Visit 08/16/2013 9:15[place] [address] 401.1 272.2 244.9 311 715.16 Office Visit 05/03/2013 8:45[place] [address] 401.1 272.2 244.9 715.16 311 461.3 Office Visit 01/04/2013 8:15[place] [address] 401.1 272.2 244.9 311 715.16 465.9 Office Visit 08/24/2012 8:15[place] [address] 401.1 272.2 244.9 311 715.16 733.00 477.0 Office Visit 04/27/2012 8:15[place] [address] 401.1 272.2 244.9 311 715.16 V04.89 V05.8 Office Visit 01/20/2012 8:15[place] [address] 401.1 272.2 244.9 311 715.14 Office Visit 09/30/2011 8:00[place] [address] 401.1 272.2 244.9 311 Office Visit 04/29/2011 8:15[place] [address] 401.1 272.2 244.9 311 715.16 733.00 Office Visit 11/05/2010 8:30[place] [address] 401.1 272.2 311 715.16 Office Visit 07/23/2010 8:00[place] [address] 401.1 272.2 715.16 311 Office Visit 04/02/2010 8:10[place] [address] 715.16 401.1 272.2 311 733.00 Office Visit 11/27/2009 8:10[place] [address] 401.1 272.2 715.16 733.00 311 Office Visit 07/31/2009 8:00[place] [address] 401.1 272.2 733.00 715.16 Office Visit 04/03/2009 8:10[place] [address] 401.1 272.2 733.00 477.0 715.16 Office Visit 11/28/2008 8:30[place] [address] 401.1 272.2 308.4 733.00 Office Visit 07/29/2008 9:20[place] [address] 461.2 465.9 Office Visit 07/04/2008 8:30[place] [address] 401.1 272.2 308.4 733.00 Office Visit 02/29/2008 8:10[place] [address] 272.2 401.1 733.00 477.0 Office Visit 08/24/2007 8:10[place] [address] 401.1 272.2 733.00 Office Visit 02/23/2007 8:10[place] [address] 401.1 272.2 733.00 308.4 691.8 Office Visit 10/27/2006 9:00[place] [address] 401.1 272.2 733.00 477.0 Office Visit 07/14/2006 9:10[place] [address] 401.1 272.2 308.4 V04.81 Office Visit 03/17/2006 8:00[place] [address] 272.2 401.1 733.00 780.79 477.9 Office Visit 11/18/2005 9:30[place] [address] 272.2 401.1 433.10 780.2 477.9 Office Visit 09/23/2005 9:50[place] [address] 272.2 401.1 780.2 Office Visit 07/22/2005 9:10[place] [address] 272.2 786.2 Office Visit 04/22/2005 8:30[place] [address] 272.2 401.1 Office Visit 01/14/2005 9:30[place] [address] 272.2 401.1 733.00 Office Visit 09/21/2004 11:20[place] [address] 272.2 401.1 733.00 Office Visit 07/18/2004 2:20p [place] [address] 272.2 401.1 780.79 Office Visit 06/13/2004 4:10p [place] [address] 780.79 401.1 V04.81 Office Visit 05/21/2004 12:20[place] [address] 272.2 401.1 780.79 Office Visit 05/12/2003 8:20[place] [address] 272.1 272.0 401.1 Office Visit 12/09/2002 8:30[place] [address] 272.0 401.1 Office Visit 11/02/2002 1:50p [place] [address] 423.9 401.1 780.79 272.0 Office Visit 10/07/2002 8:00[place] [address] 272.0 401.1 780.79 V72.3 Office Visit 07/15/2002 8:40[place] [address] 477.0 401.1 461.0 620.2 Office Visit 06/11/2002 4:10p [place] [address] 401.1 V04.8 Office Visit 12/03/2001 8:20[place] [address] 401.1 477.0 620.0 V03.82 Office Visit 09/17/2001 8:15[place] [address] Office Visit 07/27/2001 2:40[place] [address] Office Visit 11/05/2000 8:00a Leona Robert [place] A.N.P. 52282 Plan of Care Future Appointment(s):08/21/2017 3:00 pm - Cindy Cortés RN MS QUALITY AUDIT REPRESENTATIVE at [facility]208/07/2017 - Cindy Cortés RN MS [id number] Essential (primary) hypertensionNew Medication:Lisinopril 10 mgLisinopril 20 mgNew Labs: Comprehensive Met Panel-FCMGFollow up:KAY IN 2 WEEKS . WILL NEED LATE APPT FOR POTASSIUM LAB AND APPOINTMENT AND WILL DO FASTING LABS A DIFFERENT DAYMiscellaneous:start on lisinopril and check bp at home, started on a lower dose since she has lost so much wt. will kay in 2 weeks and increase if needed. You are to keep track of your blood pressure a few times a week till kay ,E78.2 Mixed hyperlipidemiaNew Labs:LipidMiscellaneous:will consider restarting pravachol if fasting labs are elevated..R63.4 Abnormal weight lossMiscellaneous:lost over 20 lbs in one year, will have her keep food diary for 2 weeks and will kay her wt and foods and see what interventions we can help with, advised her to do 3 meals a day, can be small but must eat 3 times a day , family to help with getting some froxen food options as she is not driving now, and I would have her not drive for a while.I69.911 Memory deficit following unspecified cerebrovascular diseaseComments:family reports loss of memory over past 1-2 yrs, not sudden.
[2017-08-26 19:43] LABS: ABS Basophils 0.1 10^3/ul (0-0.2); ABS Eosinophils 0 10^3/ul (0-0.6); ABS Lymphocytes 0.4 10^3/ul (1.0-4.8); ABS Monocytes 0.5 10^3/ul (0-0.8); ABS Neutrophils 8.4 10^3/ul (1.5-7.7); ABS Nucleated RBC 0 10^3/ul; Eosinophil % 0.1 % (0-6); Hematocrit 37 % (35-47); Hemoglobin 12.4 g/dl (12.0-16.0); Lymphocyte % 4.1 % (25-47); Mean Corpuscular HGB Conc 33 g/dl (31-36); Mean Corpuscular Hemoglobin 32 pg (27-31); Mean Corpuscular Volume 95 fL (80-97); Mean Platelet Volume 7 um3 (7.4-10.4); Nucleated Red Blood Cells % 0; Platelet Count 245 10^3/ul (150-450); Red Blood Count 3.92 10^6/ul (4.0-5.4); Red Cell Distribution Width 14 % (10.5-15); White Blood Count 9.3 10^3/ul (3.5-10.8)
[2017-08-26 19:47] LABS: Urine Appearance Clear; Urine Blood 1+ (Negative); Urine Color Yellow; Urine Ketones Trace (Negative); Urine Protein Negative (Negative); Urine Specific Gravity 1.013 (1.010-1.030); Urine Urobilinogen Negative (Negative)
[2017-08-26 19:58] LABS: EGFR Non-African American 87.7 (>60)
[2017-08-26] MEDS ORDERED: HYDROmorphone INJ* 1 MG/ML CARPUJECT SYRINGE IV ONE (21:01)
[2017-08-26] MEDS ORDERED: Ondansetron INJ* 2 MG/ML VIAL IV ONE (21:01)
--- NOTE | 2017-08-26 21:55 | ED ---
Barney Tomlin Julia, scribed for Trevor Landry MD on 08/26/17 at 1942 . Syncope/Near Syncope - HPI Summary HPI Summary: This patient is an 89 year old female presenting to [facility] accompanied by family due to syncope earlier today, s/p L wrist surgery. Family reports patient had syncope in wheelchair lasting a few minute with LOC. Family reports that she had a similar event 08/01/17. Patient reports that she feels okay both now and before syncope. Patient reports mild L wrist pain. Patient denies nausea and trauma. - History Of Current Complaint Chief Complaint: EDSyncope Time Seen by Provider: 08/26/17 17:07 Hx Obtained From: Patient, Family/Media Sales Representative Onset/Duration: Lasting Minutes - few minutes Context: Witnessed - by family, Loss Of Consciousness Activity At Onset: At Rest Associated Head Trauma: No Associated Signs And Symptoms: Other - mild L wrist pain. Patient denies nausea and trauma. Frequency: Episodes Lasting ____ (in Mins/Days/Weeks/Years) - couple of minutes - Allergies/Home Medications Allergies/Adverse Reactions: Allergies Allergy/AdvReac Type Severity Reaction Status Date / Time No Known Allergies Allergy Verified 08/26/17 10:54 Home Medications: Home Medications Aspirin EC Low Dose* [Ecotrin EC Low Dose 81 MG*] 81 mg PO DAILY 08/26/17 [ History Confirmed 08/26/17] PMH/Surg Hx/FS Hx/Imm Hx Endocrine/Hematology History: Denies: Hx Diabetes Cardiovascular History: Reports: Hx Hypertension History: Denies: Hx Renal Disease Musculoskeletal History: Reports: Other Musculoskeletal History - FELL 08/20/17 SUSTAINING DISPLACED FX OF LEFT WRIST Sensory History: Reports: Hx Contacts or Glasses - GLASSES Denies: Hx Cataracts, Hx Glaucoma, Hx Hearing Aid Opthamlomology History: Reports: Hx Contacts or Glasses - GLASSES Denies: Hx Cataracts, Hx Glaucoma Neurological History: Reports: Other Neuro Impairments/Disorders - SYNCOPAL EPISODE 07/2017, OK NOW - Surgical History Surgery Procedure, Year, and Place: L wrist, 2016 Hx Anesthesia Reactions: No Infectious Disease History: No Infectious Disease History: Denies: Traveled Outside the [place] in Last 30 Days - Family History Known Family History: Negative: Cardiac Disease - Social History Alcohol Use: None Hx Substance Use: No Substance Use Type: Reports: None Hx Tobacco Use: No Smoking Status (MU): Never Smoked Tobacco Have You Smoked in the Last Year: No Review of Systems Negative: Fever Negative: Nausea Positive: Other - mild L wrist pain Positive: Syncope All Other Systems Reviewed And Are Negative: Yes Physical Exam - Summary Physical Exam Summary: Appearance: The patient is well-nourished in no acute distress and in no acute pain. Skin: The skin is warm and dry and skin color reflects adequate perfusion. HEENT: The head is normocephalic and atraumatic. The pupils are equal and reactive. The conjunctivae are clear and without drainage. Nares are patent and without drainage. Mouth reveals moist mucous membranes and the throat is without erythema and exudate. The external ears are intact. The ear canals are patent and without drainage. The tympanic membranes are intact. Neck: the neck is supple with full range of motion and non-tender. There are no carotid bruits. There is no neck vein distension. Respiratory: Chest is non-tender. Lungs are clear to auscultation and breath sounds are symmetrical and equal. Cardiovascular: Heart is regular rate and rhythm. There is no murmur or rub auscultated. There is no peripheral edema and pulses are symmetrical and equal. Abdomen: The abdomen is soft and non-tender. There are normal bowel sounds heard in all four quadrants and there is no organomegaly palpated. Musculoskeletal: There is no back tenderness noted. Extremities are non-tender with full range of motion. There is good capillary refill. There is no calf tenderness elicited. There is L hand edema with dorsal ecchymosis. Neurological: Patient is alert and oriented to person, place and time. The patient has symmetrical motor strength in all four extremities. Cranial nerves are grossly intact. Deep tendon reflexes are symmetrical and equal in all four extremities. Psychiatric: The patient has an appropriate affect and does not exhibit any anxiety or depression. Triage Information Reviewed: Yes Vital Signs On Initial Exam: Initial Vitals Temp Pulse Resp BP Pulse Ox 98.1 F 67 14 172/115 97 08/26/17 17:00 08/26/17 17:00 08/26/17 17:00 08/26/17 17:00 08/26/17 17:00 Vital Signs Reviewed: Yes Musculoskeletal: Positive: Edema Left - left hand with ecchymosis - Gisella Coma Scale Coma Scale Total: 15 Diagnostics - Vital Signs Vital Signs Temp Pulse Resp BP Pulse Ox 08/26/17 19:00 68 14 168/78 97 08/26/17 18:44 94 08/26/17 18:30 70 15 176/77 98 08/26/17 18:00 66 11 163/79 97 08/26/17 17:30 140/86 08/26/17 17:25 14 08/26/17 17:03 172/115 08/26/17 17:00 98.1 F 67 14 172/115 97 - Laboratory Lab Results: Lab Results 08/26/17 08/26/17 08/26/17 Range/Units 17:35 19:20 19:20 WBC 9.3 (3.5-10.8) 10^3/ul RBC 3.92 L (4.0-5.4) 10^6/ul Hgb 12.4 (12.0-16.0) g/dl Hct 37 (35-47) % MCV 95 (80-97) fL MCH 32 H (27-31) pg MCHC 33 (31-36) g/dl RDW 14 (10.5-15) % Plt Count 245 (150-450) 10^3/ul MPV 7 L (7.4-10.4) um3 Neut % (Auto) 89.7 H (38-83) % Lymph % (Auto) 4.1 L (25-47) % Garrard % (Auto) 5.0 (1-9) % Eos % (Auto) 0.1 (0-6) % Baso % (Auto) 1.1 (0-2) % Absolute Neuts (auto) 8.4 H (1.5-7.7) 10^3/ul Absolute Lymphs (auto) 0.4 L (1.0-4.8) 10^3/ul Absolute Monos (auto) 0.5 (0-0.8) 10^3/ul Absolute Eos (auto) 0 (0-0.6) 10^3/ul Absolute Basos (auto) 0.1 (0-0.2) 10^3/ul Absolute Nucleated RBC 0 10^3/ul Nucleated RBC % 0 Sodium 140 (133-145) mmol/L Potassium 3.3 L (3.5-5.0) mmol/L Chloride 105 (101-111) mmol/L Carbon Dioxide 27 (22-32) mmol/L Anion Gap 8 (2-11) mmol/L BUN 9 (6-24) mg/dL Creatinine 0.65 (0.51-0.95) mg/dL Est GFR ( Amer) 112.8 (>60) Est GFR (Non-Af Amer) 87.7 (>60) BUN/Creatinine Ratio 13.8 (8-20) Glucose 125 H (70-100) mg/dL Lactic Acid (0.5-2.0) mmol/L Calcium 8.7 (8.6-10.3) mg/dL Magnesium 1.8 L (1.9-2.7) mg/dL Total Bilirubin 0.80 (0.2-1.0) mg/dL AST 13 (13-39) U/L ALT 7 (7-52) U/L Alkaline Phosphatase 65 (34-104) U/L Troponin I 0.01 (<0.04) ng/mL Total Protein 6.3 L (6.4-8.9) g/dL Albumin 3.8 (3.2-5.2) g/dL Globulin 2.5 (2-4) g/dL Albumin/Globulin Ratio 1.5 (1-3) TSH 0.99 (0.34-5.60) mcIU/mL Urine Color Yellow Urine Appearance Clear Urine pH 7.0 (5-9) Ur Specific Hull 1.013 (1.010-1.030) Urine Protein Negative (Negative) Urine Ketones Trace H (Negative) Urine Blood 1+ H (Negative) Urine Nitrate Negative (Negative) Urine Bilirubin Negative (Negative) Urine Urobilinogen Negative (Negative) Ur Leukocyte Esterase Negative (Negative) Urine WBC (Auto) Trace(0-5/hpf) (Absent) Urine RBC (Auto) Trace(0-2/hpf) (Absent) Ur Squamous Epith Cells Present H (Absent) Amorphous Crystals Present H (Absent) Urine Bacteria 1+ H (Absent) Hyaline Casts Present H (Absent) Urine Glucose Negative (Negative) 12/19/17 Range/Units 19:20 WBC (3.5-10.8) 10^3/ul RBC (4.0-5.4) 10^6/ul Hgb (12.0-16.0) g/dl Hct (35-47) % MCV (80-97) fL MCH (27-31) pg MCHC (31-36) g/dl RDW (10.5-15) % Plt Count (150-450) 10^3/ul MPV (7.4-10.4) um3 Neut % (Auto) (38-83) % Lymph % (Auto) (25-47) % Garrard % (Auto) (1-9) % Eos % (Auto) (0-6) % Baso % (Auto) (0-2) % Absolute Neuts (auto) (1.5-7.7) 10^3/ul Absolute Lymphs (auto) (1.0-4.8) 10^3/ul Absolute Monos (auto) (0-0.8) 10^3/ul Absolute Eos (auto) (0-0.6) 10^3/ul Absolute Basos (auto) (0-0.2) 10^3/ul Absolute Nucleated RBC 10^3/ul Nucleated RBC % Sodium (133-145) mmol/L Potassium (3.5-5.0) mmol/L Chloride (101-111) mmol/L Carbon Dioxide (22-32) mmol/L Anion Gap (2-11) mmol/L BUN (6-24) mg/dL Creatinine (0.51-0.95) mg/dL Est GFR ( Amer) (>60) Est GFR (Non-Af Amer) (>60) BUN/Creatinine Ratio (8-20) Glucose (70-100) mg/dL Lactic Acid 1.1 (0.5-2.0) mmol/L Calcium (8.6-10.3) mg/dL Magnesium (1.9-2.7) mg/dL Total Bilirubin (0.2-1.0) mg/dL AST (13-39) U/L ALT (7-52) U/L Alkaline Phosphatase (34-104) U/L Troponin I (<0.04) ng/mL Total Protein (6.4-8.9) g/dL Albumin (3.2-5.2) g/dL Globulin (2-4) g/dL Albumin/Globulin Ratio (1-3) TSH (0.34-5.60) mcIU/mL Urine Color Urine Appearance Urine pH (5-9) Ur Specific Hull (1.010-1.030) Urine Protein (Negative) Urine Ketones (Negative) Urine Blood (Negative) Urine Nitrate (Negative) Urine Bilirubin (Negative) Urine Urobilinogen (Negative) Ur Leukocyte Esterase (Negative) Urine WBC (Auto) (Absent) Urine RBC (Auto) (Absent) Ur Squamous Epith Cells (Absent) Amorphous Crystals (Absent) Urine Bacteria (Absent) Hyaline Casts (Absent) Urine Glucose (Negative) Result Diagrams: 08/26/17 19:20 08/26/17 19:20 Lab Statement: Any lab studies that have been ordered have been reviewed, and results considered in the medical decision making process. Course/Dx Course Of Treatment: Ms. Lopez had a very dramatic syncopal episode while being wheeled out to the parking lot after surgical repain of a left wrist fracture. It was done with a local block but she was given propofol also. She cannot recall and preceeding symptoms and feels fine on arrival here. She was admitted once previously for a syncopal episode and monitored. She is being admitted to a telemetry bed. - Diagnoses Provider Diagnoses: Syncope Discharge - Discharge Plan Condition: Stable Disposition: ADMITTED TO [facility] Referrals: Cindy Cortés [Primary Care Provider] - The documentation as recorded by the Barney mendoza Julia accurately reflects the service I personally performed and the decisions made by me, Trevor Landry MD.
[2017-08-26] MEDS ORDERED: HYDROcodone/ACETAMIN 5-325 MG* 1 TAB PO ONE (21:57)
[2017-08-26] MEDS ORDERED: Acetaminophen TAB* 325 MG PO PRN (21:57)
[2017-08-26] MEDS ORDERED: Ondansetron INJ* 2 MG/ML VIAL IV PRN (21:57)
[2017-08-26] MEDS ORDERED: Magnesium Sulfate 2 GM IV* 2 GM/50 ML BAG IVPB ONE (22:06)
[2017-08-26] MEDS ORDERED: Potassium Chlor TAB* 20 MEQ TAB.ER PO ONE (22:06)
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
[2017-08-27] MEDS: HYDROcodone/ACETAMIN 5-325 MG* 1 TAB PO PRN ×2 (02:16→09:47)
[2017-08-27 02:59] LABS: EGFR Non-African American 71.1 (>60)
[2017-08-27 04:54] LABS: ABS Basophils 0 10^3/ul (0-0.2); ABS Eosinophils 0.1 10^3/ul (0-0.6); ABS Lymphocytes 0.9 10^3/ul (1.0-4.8); ABS Monocytes 0.5 10^3/ul (0-0.8); ABS Neutrophils 6.1 10^3/ul (1.5-7.7); ABS Nucleated RBC 0 10^3/ul; Eosinophil % 1.2 % (0-6); Hematocrit 35 % (35-47); Hemoglobin 11.6 g/dl (12.0-16.0); Lymphocyte % 11.8 % (25-47); Mean Corpuscular HGB Conc 33 g/dl (31-36); Mean Corpuscular Hemoglobin 32 pg (27-31); Mean Corpuscular Volume 95 fL (80-97); Mean Platelet Volume 8 um3 (7.4-10.4); Nucleated Red Blood Cells % 0.1; Platelet Count 226 10^3/ul (150-450); Red Blood Count 3.67 10^6/ul (4.0-5.4); Red Cell Distribution Width 14 % (10.5-15); White Blood Count 7.6 10^3/ul (3.5-10.8)
[2017-08-27] MEDS ORDERED: Heparin VIAL(*) 5000 UNITS/ML VIAL (FIVE THOUSAND) SUBCUT SCH (06:00)
--- NOTE | 2017-08-27 06:24 | RAD ---
INDICATION: Syncope COMPARISON: Previous chest x-ray obtained 07/31/17 TECHNIQUE: Single AP portable view of the chest was obtained. FINDINGS: Image quality is compromised due to the relative inferiority of a portable chest x-ray. The heart and mediastinum exhibit normal size and contour. The lungs are grossly clear. There is no evidence of a large pleural effusion. Visualized bones are normal for the patient's age. IMPRESSION: No radiographic evidence for acute cardiopulmonary abnormality on this portable chest x-ray.
--- NOTE | 2017-08-27 06:36 | RAD ---
INDICATION: Syncope COMPARISON: Similar CT brain 07/31/17 TECHNIQUE: Contiguous axial sections of the brain were obtained from the skull base to the vertex without contrast. FINDINGS: The ventricles, cisterns and sulci exhibit symmetrical involution changes. There is periventricular and subcortical white matter hypoattenuation consistent with small vessel disease similar to the previous CT. Otherwise the carter-white matter differentiation is adequately maintained and there is no sulcal effacement. No significant focal abnormality or mass effect is present. There is no evidence for intracranial hemorrhage. No significant focal osseous abnormality is present. There is near complete opacification of the left sphenoid sinus similar to the previous CT. The mastoid air cells appear clear. IMPRESSION: No acute intracranial abnormality.
[2017-08-27] MEDS ORDERED: Lisinopril TAB* 10 MG PO SCH (09:00)
[2017-08-27] MEDS ORDERED: Aspirin EC Low Dose* 81 MG TAB.EC PO SCH (09:00)
--- NOTE | 2017-08-27 10:46 | RAD ---
HISTORY: Syncope COMPARISONS: None TECHNIQUE: Multiple transverse and longitudinal ultrasound images were obtained of the carotid and vertebral arteries bilaterally, using grayscale, color Doppler, and spectral Doppler imaging. FINDINGS: Measurement of carotid stenosis is based on flow velocity parameters that correlate the residual internal carotid artery diameter with [place] Symptomatic Carotid Endarterectomy Trial (NASCET)-based stenosis levels. RIGHT: Intima: There is mild diffuse intimal thickening. Velocities: Right internal carotid artery maximum peak systolic velocity: 69 cm/s Right common carotid artery maximum peak systolic velocity: 87 cm/s Right internal carotid artery/common carotid artery ratio: 1 Waveforms: There is no spectral broadening. Right Vertebral: The right vertebral artery flow is antegrade. LEFT: Intima: There is diffuse intimal thickening with more focal calcified atheroma formation at the bifurcation. Velocities: Left internal carotid artery maximum peak systolic velocity: 96 cm/s Left common carotid artery maximum peak systolic velocity: 91 cm/s Left internal carotid artery/common carotid artery ratio: 1.1 Waveforms: There is no spectral broadening. Left Vertebral: The left vertebral artery flow is antegrade. OTHER FINDINGS: None. IMPRESSION: 1. CALCIFIED ATHEROMATOUS PLAQUE OF THE LEFT CAROTID BIFURCATION. 2. NO HEMODYNAMICALLY SIGNIFICANT STENOSIS OF THE RIGHT INTERNAL CAROTID ARTERY BY FLOW VELOCITY MEASUREMENTS. THIS CORRESPONDS TO A LUMINAL DIAMETER OF LESS THAN 50% STENOSIS BY NASCET CRITERIA. 3. NO HEMODYNAMICALLY SIGNIFICANT STENOSIS OF THE LEFT INTERNAL CAROTID ARTERY BY FLOW VELOCITY MEASUREMENTS. THIS CORRESPONDS TO A LUMINAL DIAMETER OF LESS THAN 50% STENOSIS BY NASCET CRITERIA. CPT II Codes: 3100F
[2017-08-27 11:52] VITALS: BP 125/86
--- NOTE | 2017-08-28 13:18 | DS ---
CC: Cindy Cortés NP* DISCHARGE SUMMARY: DATE OF ADMISSION: 08/26/17 DATE OF DISCHARGE: 08/27/17 PRIMARY CARE PROVIDER: Cindy Cortés NP. DISCHARGING PROVIDER: LILLIE Rodriguez. SUPERVISING PHYSICIAN: Dr. Leno Saldana* (dictated by LILLIE Rodriguez). PRIMARY DISCHARGE DIAGNOSIS: Syncope - likely vasovagal secondary to nausea following ORIF of the left wrist. SECONDARY DISCHARGE DIAGNOSES: 1. Mild dementia. 2. Hypertension. 3. Hyperlipidemia. 4. Recent left wrist fracture, status post ORIF 08/26/17. DISCHARGE MEDICATIONS: 1. Aspirin 81 mg p.o. daily. 2. Lisinopril 20 mg p.o. daily. Medication changes: None. HOSPITAL IMAGING: Carotid Doppler study shows less than 50% stenosis bilaterally. No other abnormalities. CT brain shows no acute pathology. Chest x-ray shows no acute process. HOSPITAL COURSE: This is a very pleasant 81-year-old female with history of mild dementia as well as hypertension, hyperlipidemia who sustained a mechanical fall at home a few days ago resulting in left wrist fracture. She underwent ORIF 08/26/17 at [facility] and following the procedure she had an acute syncopal episode. The patient was subsequently transferred to the emergency department for evaluation and admitted for a period of observation. Of note, the patient was admitted over the with a possible syncopal episode as well. She underwent a transthoracic echocardiogram at that time, which was essentially within normal limits. She also underwent CTA of the chest at that time, which was negative for PE or other acute pathology. The patient has otherwise been asymptomatic since that time. She was noted to vomit once in the ambulance on her way over to the emergency department. During patient's hospitalization, she was maintained on continuous telemetry. CT of her brain at the time of admission was unremarkable. Initial labs showed mild hypokalemia and hypomagnesemia, but otherwise within normal limits. Her initial vitals showed hypertension. She was mildly orthostatic. She had serial troponin monitoring which remained negative. EKG showed no acute ischemic changes. Carotid ultrasound was completed, which was negative for carotid stenosis. Based on history and circumstances of her acute syncope, vasovagal seems to be the most likely. I recommend no changes to home medications and follow up with primary care provider. Of note, this is patient's second syncopal event in the last month but the two seem unrelated at this time. I discussed with patient and her family that we could consider further outpatient monitoring such as an event monitor if a third syncopal event occurs, but encouraged them to discuss this further with primary care. LILLIE RODRIGUEZ [id number]/[facility] #: [id number] ROBB
--- NOTE | 2017-08-29 05:45 | HP ---
H&P (Free Text) History and Physical: LATE ENTRY 08/26/2017 2100 Mrs Lopez is an 81F presenting with syncope after propofol anesthesia for wrist FX surgery, suspect vasovagal. Will observe overnight for syncope work up.
== END 2017-08-27 13:00 | disposition home or self-care (01) ==
LOC: ED 16:53 → MEDTELE 21:08
PROVIDERS: ADMIT Hospitalist; ATTEND Hospitalist
DX: S52.502A Unspecified fracture of the lower end of left radius, initial encounter for closed fracture (principal); R11.0 Nausea; Z98.890 Other specified postprocedural states; R55 Syncope and collapse; F03.90 Unspecified dementia, unspecified severity, without behavioral disturbance, psychotic disturbance, mood disturbance, and anxiety; I10 Essential (primary) hypertension; E78.5 Hyperlipidemia, unspecified; Z79.82 Long term (current) use of aspirin; Z79.899 Other long term (current) drug therapy; E83.42 Hypomagnesemia; E87.5 Hyperkalemia; R94.31 Abnormal electrocardiogram [ECG] [EKG]; W19.XXXA Unspecified fall, initial encounter; Y92.9 Unspecified place or not applicable; G89.18 Other acute postprocedural pain
CPT/HCPCS: 36415; 70450; 71010; 76000; 80048; 80053; 81003; 81015; 83605; 83735; 84443; 84484; 85025; 87086; 93005; 93880; 96374; 96375; 99284; A9270-GY; C1713; C1776; G0378; J0670; J0690; J1170; J1644; J2405; J2704; J3475

== ENCOUNTER 2023-07-28 09:26 | Inpatient (IN) ==
[2023-07-28] MEDS ORDERED: Iodixanol (CONTRAST) 320 MG/ML 100 ML SDV IV ONE (09:35)
[2023-07-28] MEDS ORDERED: TENECTEPLASE 50 MG VIAL KIT 5 MG/ML (reconstituted) IV ONE (09:46)
[2023-07-28 09:52] LABS: ABS Basophils 0.1 10^3/uL (0.0-0.1); ABS Eosinophils 0.2 10^3/uL (0.0-0.5); ABS Lymphocytes 1.5 10^3/uL (1.0-4.8); ABS Monocytes 0.4 10^3/uL (0.0-0.9); ABS Neutrophils 4.6 10^3/uL (1.5-7.6); ABS Nucleated RBC 0.01 10^3/ul; Eosinophil % 2.6 %; Hematocrit 35.8 % (35-45); Hemoglobin 11.9 g/dL (11.5-14.3); Lymphocyte % 22.6 %; Mean Corpuscular Hgb Conc 33.1 g/dL (31-36); Mean Corpuscular Volume 90.5 fL (80-97); Nucleated Red Blood Cells % 0.1 %/100WBC (0.0-0.8); Platelet Count 258 10^3/uL (150-450); Red Blood Count 3.96 10^6/uL (3.63-4.92); Red Cell Distribution Width 15.9 % (12-17); White Blood Count 6.8 10^3/uL (3.8-11.8)
[2023-07-28] MEDS ORDERED: niCARdipine 0.1MG/ML IVPREMIX 20 MG/200 ML BAG IV ONE (09:55)
[2023-07-28] MEDS ORDERED: niCARdipine 0.1MG/ML IVPREMIX 20 MG/200 ML BAG IV SCH (10:00)
[2023-07-28 10:15] LABS: Albumin 3.5 g/dL (3.2-5.2); Albumin/Globulin Ratio 1.3 (1-3); Calcium 8.3 mg/dL (8.6-10.3); Creatinine, Serum 0.55 mg/dL (0.51-0.95); Direct Bilirubin 0.1 mg/dL (0.03-0.18); Globulin 2.8 g/dL (2-4); HDL Cholesterol 45.6 mg/dL; Indirect Bilirubin 0.3 mg/dL (0.3-1.0); Potassium 3.9 mmol/L (3.5-5.0); Total Bilirubin 0.4 mg/dL (0.2-1.0); Total Protein 6.3 g/dL (6.4-8.9); eGFR CKD-EPI 89.2 (>60)
[2023-07-28 10:24] LABS: Activated Partial Thrombo Time 27.2 seconds (26.0-38.0); INR 1.15 (0.83-1.13)
[2023-07-29 04:15] LABS: ABS Basophils 0.1 10^3/uL (0.0-0.1); ABS Eosinophils 0.3 10^3/uL (0.0-0.5); ABS Lymphocytes 1.5 10^3/uL (1.0-4.8); ABS Monocytes 0.4 10^3/uL (0.0-0.9); ABS Neutrophils 5.7 10^3/uL (1.5-7.6); Eosinophil % 3.2 %; Hematocrit 38.9 % (35-45); Hemoglobin 13.1 g/dL (11.5-14.3); Lymphocyte % 18.5 %; Mean Corpuscular Hemoglobin 30.3 pg (27-33); Mean Corpuscular Hgb Conc 33.7 g/dL (31-36); Mean Platelet Volume 6.9 fL (7.5-11.2); Nucleated Red Blood Cells % 0.1 %/100WBC (0.0-0.8); Platelet Count 266 10^3/uL (150-450); Red Blood Count 4.32 10^6/uL (3.63-4.92); Red Cell Distribution Width 15.9 % (12-17)
[2023-07-29 04:34] LABS: Calcium 9.1 mg/dL (8.6-10.3); Creatinine, Serum 0.6 mg/dL (0.51-0.95); Magnesium 1.9 mg/dL (1.9-2.7); Potassium 3.4 mmol/L (3.5-5.0); eGFR CKD-EPI 87.4 (>60)
[2023-07-29] MEDS: KCL 20 MEQ/100 ML IVPREMIX 20 MEQ/100 ML BAG IV SCH ×2 (08:01→12:00)
[2023-07-29] MEDS ORDERED: Sulfur Hexaflouride MICROSPHR 25 MG VIAL ONE (08:26)
[2023-07-29] MEDS ORDERED: Potassium Chlor 20 meq TAB.ER PO ONE (11:02)
[2023-07-29] MEDS ORDERED: Enoxaparin 40 MG/0.4 ML SYR SUBCUT SCH (12:00)
[2023-07-29] MEDS ORDERED: Enoxaparin 30 MG/0.3 ML SYR SUBCUT SCH ×2 (12:00)
[2023-07-29] MEDS: Aspirin EC 81 mg TAB.EC (enteric coated) PO SCH (12:16)
[2023-07-30] MEDS ORDERED: Haloperidol 5 mg/ml SDV IV/IM 5 MG/ML AMP IV SLOW PU ONE (00:14)
[2023-07-30 08:29] LABS: ABS Eosinophils 0.2 10^3/uL (0.0-0.5); ABS Lymphocytes 1.1 10^3/uL (1.0-4.8); ABS Monocytes 0.4 10^3/uL (0.0-0.9); ABS Neutrophils 4.9 10^3/uL (1.5-7.6); ABS Nucleated RBC 0.01 10^3/ul; Eosinophil % 2.3 %; Hematocrit 41.7 % (35-45); Hemoglobin 13.9 g/dL (11.5-14.3); Lymphocyte % 16.8 %; Mean Corpuscular Hemoglobin 30.1 pg (27-33); Mean Corpuscular Hgb Conc 33.3 g/dL (31-36); Mean Corpuscular Volume 90.5 fL (80-97); Mean Platelet Volume 7.2 fL (7.5-11.2); Nucleated Red Blood Cells % 0.1 %/100WBC (0.0-0.8); Platelet Count 285 10^3/uL (150-450); Red Blood Count 4.61 10^6/uL (3.63-4.92); Red Cell Distribution Width 15.8 % (12-17); White Blood Count 6.6 10^3/uL (3.8-11.8)
[2023-07-30] MEDS ORDERED: Iohexol 350 (CONTRAST) 500 ML MDV IV ONE (08:31)
[2023-07-30 09:21] LABS: Calcium 9.6 mg/dL (8.6-10.3); Creatinine, Serum 0.74 mg/dL (0.51-0.95); Magnesium 1.9 mg/dL (1.9-2.7); eGFR CKD-EPI 78.7 (>60)
[2023-07-30] MEDS: Aspirin EC 81 mg TAB.EC (enteric coated) PO SCH (09:39)
[2023-07-30] MEDS: Enoxaparin 60 MG/0.6 ML SYR SUBCUT SCH (13:02)
[2023-07-31] MEDS: Enoxaparin 60 MG/0.6 ML SYR SUBCUT SCH ×2 (00:10→12:33)
[2023-07-31 06:19] LABS: ABS Eosinophils 0.2 10^3/uL (0.0-0.5); ABS Lymphocytes 1.1 10^3/uL (1.0-4.8); ABS Monocytes 0.6 10^3/uL (0.0-0.9); ABS Neutrophils 6.2 10^3/uL (1.5-7.6); Eosinophil % 2.1 %; Hemoglobin 12.6 g/dL (11.5-14.3); Lymphocyte % 13.7 %; Mean Corpuscular Hemoglobin 29.8 pg (27-33); Mean Corpuscular Hgb Conc 33.2 g/dL (31-36); Mean Corpuscular Volume 89.6 fL (80-97); Mean Platelet Volume 7.2 fL (7.5-11.2); Platelet Count 287 10^3/uL (150-450); Red Blood Count 4.24 10^6/uL (3.63-4.92); Red Cell Distribution Width 15.9 % (12-17); White Blood Count 8.1 10^3/uL (3.8-11.8)
[2023-07-31 06:44] LABS: Calcium 9.1 mg/dL (8.6-10.3); Creatinine, Serum 0.77 mg/dL (0.51-0.95); Magnesium 1.9 mg/dL (1.9-2.7); Potassium 3.6 mmol/L (3.5-5.0); eGFR CKD-EPI 75.1 (>60)
[2023-07-31] MEDS ORDERED: Iohexol 350 (CONTRAST) 500 ML MDV IV ONE (07:22)
[2023-08-01 05:42] LABS: ABS Eosinophils 0.1 10^3/uL (0.0-0.5); ABS Lymphocytes 1.2 10^3/uL (1.0-4.8); ABS Monocytes 0.7 10^3/uL (0.0-0.9); ABS Neutrophils 5.9 10^3/uL (1.5-7.6); ABS Nucleated RBC 0.01 10^3/ul; Eosinophil % 1.5 %; Hematocrit 37.6 % (35-45); Hemoglobin 12.5 g/dL (11.5-14.3); Mean Corpuscular Hemoglobin 29.9 pg (27-33); Mean Corpuscular Hgb Conc 33.3 g/dL (31-36); Mean Corpuscular Volume 89.7 fL (80-97); Mean Platelet Volume 7.4 fL (7.5-11.2); Nucleated Red Blood Cells % 0.1 %/100WBC (0.0-0.8); Platelet Count 296 10^3/uL (150-450); Red Blood Count 4.19 10^6/uL (3.63-4.92); Red Cell Distribution Width 15.7 % (12-17)
[2023-08-01 06:01] LABS: Calcium 8.6 mg/dL (8.6-10.3); Creatinine, Serum 0.65 mg/dL (0.51-0.95); Phosphorus 3.3 mg/dL (2.5-5.0); Potassium 3.3 mmol/L (3.5-5.0); eGFR CKD-EPI 85.7 (>60)
[2023-08-01 10:02] VITALS: BP 152/76
[2023-08-01] MEDS ORDERED: Potassium Chlor 20 meq TAB.ER PO ONE (11:39)
[2023-08-01 12:28] LABS: Coagulation Factor V Assay 137 % (70 - 165)
[2023-08-01 12:48] LABS: Protein C Activity 122 % (70 - 150)
[2023-08-04 12:56] LABS: DRVVT Screen Ratio 0.97 ratio (<1.20); LAC APTT 30 sec (25 - 37); LAC INR 1.3 (0.9-1.1); LAC PT Mix 1:1 12.1 sec (9.4 - 12.5)
[2023-08-04 13:17] LABS: Thrombin Time (Bovine), P 18.5 sec
== END 2023-08-01 14:05 | DRG 62 ==
LOC: ED 09:26 → EDHOLD 14:54 → SUATTDRO 14:54 → ICU 15:28 → MEDTELE 07-30 20:20
PROVIDERS: ADMIT Internal Medicine Critical Care Medicine; ATTEND Hospitalist

== ENCOUNTER 2023-11-12 18:59 | Observation (INO) ==
[2023-11-12 20:20] LABS: ABS Basophils 0.1 10^3/uL (0.0-0.1); ABS Eosinophils 0.1 10^3/uL (0.0-0.5); ABS Monocytes 0.6 10^3/uL (0.0-0.9); ABS Neutrophils 5.8 10^3/uL (1.5-7.6); Eosinophil % 1.4 %; Hematocrit 35.8 % (35-45); Lymphocyte % 13.1 %; Mean Corpuscular Hemoglobin 28.5 pg (27-33); Mean Corpuscular Hgb Conc 33.5 g/dL (31-36); Mean Corpuscular Volume 85.3 fL (80-97); Mean Platelet Volume 7.3 fL (7.5-11.2); Platelet Count 237 10^3/uL (150-450); Red Cell Distribution Width 16.9 % (12-17); White Blood Count 7.7 10^3/uL (3.8-11.8)
[2023-11-12 20:43] LABS: INR 1.25 (0.83-1.13)
[2023-11-12 21:13] LABS: Albumin 4.1 g/dL (3.2-5.2); Albumin/Globulin Ratio 1.4 (1-3); Calcium 9.1 mg/dL (8.6-10.3); Creatinine, Serum 0.78 mg/dL (0.51-0.95); Globulin 2.9 g/dL (2-4); Potassium 3.8 mmol/L (3.5-5.0); Total Bilirubin 0.3 mg/dL (0.2-1.0); eGFR CKD-EPI 73.5 (>60)
[2023-11-12 21:48] LABS: High Sensitivity Troponin 1 Hr 8 pg/mL (<15)
[2023-11-12] MEDS: Iohexol 350 (CONTRAST) 500 ML MDV IV ONE (22:23)
[2023-11-13 09:36] LABS: Hematocrit 37.5 % (35-45); Hemoglobin 12.4 g/dL (11.5-14.3); Mean Corpuscular Hemoglobin 28.2 pg (27-33); Mean Corpuscular Volume 85.4 fL (80-97); Mean Platelet Volume 7.1 fL (7.5-11.2); Platelet Count 238 10^3/uL (150-450); Red Blood Count 4.39 10^6/uL (3.63-4.92); White Blood Count 5.2 10^3/uL (3.8-11.8)
[2023-11-13] MEDS: Iohexol 350 (CONTRAST) 500 ML MDV IV ONE (10:16)
[2023-11-13 10:17] LABS: Calcium 9.2 mg/dL (8.6-10.3); Creatinine, Serum 0.75 mg/dL (0.51-0.95); Potassium 3.9 mmol/L (3.5-5.0)
[2023-11-13] MEDS: Latanoprost 0.005% 2.5 ml BTL BOTH EYES SCH (11:04)
[2023-11-13 12:10] LABS: Urine Specific Gravity >1.050 (1.002-1.030)
[2023-11-13 12:12] LABS: Urine Appearance Clear; Urine Bacteria Absent /HPF (Absent); Urine Bilirubin Negative (Negative); Urine Blood Trace (Negative); Urine Color Light-Yellow; Urine Glucose Negative (Negative); Urine Ketones Negative (Negative); Urine Nitrite Negative (Negative); Urine Protein Trace (Negative); Urine Red Blood Cell 2+(6-10/hpf) /HPF (0-Trace); Urine Squamous Epithelial Cell Present /HPF (Absent); Urine Urobilinogen Negative (Negative); Urine White Blood Cell Trace(0-5/hpf) /HPF (0-Trace)
[2023-11-14 08:56] LABS: ABS Eosinophils 0.2 10^3/uL (0.0-0.5); ABS Lymphocytes 1.1 10^3/uL (1.0-4.8); ABS Monocytes 0.4 10^3/uL (0.0-0.9); ABS Neutrophils 2.8 10^3/uL (1.5-7.6); ABS Nucleated RBC 0.04 10^3/ul; Eosinophil % 4.8 %; Hematocrit 38.7 % (35-45); Hemoglobin 12.5 g/dL (11.5-14.3); Lymphocyte % 24.6 %; Mean Corpuscular Hemoglobin 28.4 pg (27-33); Mean Corpuscular Hgb Conc 32.5 g/dL (31-36); Mean Corpuscular Volume 87.4 fL (80-97); Mean Platelet Volume 7.1 fL (7.5-11.2); Nucleated Red Blood Cells % 0.9 %/100WBC (0.0-0.8); Platelet Count 216 10^3/uL (150-450); Red Blood Count 4.42 10^6/uL (3.63-4.92); Red Cell Distribution Width 17.6 % (12-17); White Blood Count 4.5 10^3/uL (3.8-11.8)
[2023-11-14 10:08] LABS: Creatinine, Serum 0.64 mg/dL (0.51-0.95); Potassium 3.3 mmol/L (3.5-5.0); eGFR CKD-EPI 85.5 (>60)
[2023-11-14 14:17] VITALS: BP 136/84
[2023-11-14] MEDS: Sulfamethox/Trimethoprim DS TAB 800/160 mg PO ONE (15:29)
== END 2023-11-14 21:32 ==
LOC: EDHOLD 18:59 → ED 18:59 → SUATTDRO 11-13 01:09 → MEDTELE 11-13 14:28
PROVIDERS: ADMIT Internal Medicine; ATTEND Internal Medicine